=== PATIENT | female | born 1970 | race Caucasian/White ===

== ENCOUNTER → 2019-03-20 10:19 | Outpatient (BNVA) | payer MEDICAID, SELFPAY | PROVIDERS: Visit Provider Internal Medicine Rheumatology | DX: M05.79 Rheumatoid arthritis with rheumatoid factor of multiple sites without organ or systems involvement (principal); Z79.899 Other long term (current) drug therapy; M79.7 Fibromyalgia; Z79.52 Long term (current) use of systemic steroids | CPT/HCPCS: 36415; 82565; 84460; 85651; 86140; 99213 ==

== ENCOUNTER → 2019-03-20 10:57 | Outpatient (BNVA) | payer MEDICAID, SELFPAY | PROVIDERS: Visit Provider Internal Medicine Rheumatology | DX: M05.79 Rheumatoid arthritis with rheumatoid factor of multiple sites without organ or systems involvement (principal); Z79.899 Other long term (current) drug therapy; M79.7 Fibromyalgia | CPT/HCPCS: 85025 ==

== ENCOUNTER → 2019-05-09 14:42 | Outpatient (BNVA) | payer MEDICAID, SELFPAY | PROVIDERS: PCP Nurse Practitioner Family; Referring Provider Internal Medicine Rheumatology; Visit Provider Internal Medicine Rheumatology | DX: M05.79 Rheumatoid arthritis with rheumatoid factor of multiple sites without organ or systems involvement (principal); Z79.899 Other long term (current) drug therapy; M79.7 Fibromyalgia; Z11.1 Encounter for screening for respiratory tuberculosis | CPT/HCPCS: 36415; 80076; 82565; 85651; 86140; 99214 ==

== ENCOUNTER → 2019-05-09 15:59 | Outpatient (BNVA) | payer MEDICAID, SELFPAY | PROVIDERS: PCP Nurse Practitioner Family; Referring Provider Internal Medicine Rheumatology; Visit Provider Internal Medicine Rheumatology | DX: Z79.899 Other long term (current) drug therapy (principal); M05.79 Rheumatoid arthritis with rheumatoid factor of multiple sites without organ or systems involvement; M79.7 Fibromyalgia; Z71.89 Other specified counseling | CPT/HCPCS: 85025; 86480 ==

== ENCOUNTER 2019-05-10 14:40 | Outpatient (CLI) | payer MEDICAID, SELFPAY ==
--- NOTE | 2019-05-10 | XR_ITS ---
WS: [id number] Right foot, 3 views, 05/10/2019 Clinical Data: UNSPECIFIED RHEUMATOID ARTHRITIS Comparison: None. Findings: No fractures or dislocations are seen. There is cystic change of the heads of the second through four th metatarsals. There is cystic change at the base of the right fourth metatarsal. Cystic change and then the distal navicular is noted. There is a small bunion at the head of the right first metatarsal . Hammertoes deformities are noted in the second through fifth toes. There is a plantar spur. No wesley articular demineralization or calcifications are seen. XR/XR foot RT min 3V* [id number] Impression: 1. Diffuse cystic change of the second through fourth metatarsals, base of the right fifth metatarsal and of the distal navicular. 2. Hammertoes deformities of the second through fifth toes. 3. Bunion at the head of the right first metatarsal.
--- NOTE | 2019-05-10 | XR_ITS ---
WS: [id number] Left foot, 3 views, 05/10/2019 Clinical Data: UNSPECIFIED RHEUMATOID ARTHRITIS Comparison: None. Findings: There are cystic changes at the heads of the second through fifth metatarsals. The base of the left s econd proximal phalanx shows a small cyst. There are hammertoe deformities of the second through four th toes. There is medial deviation of the left fifth toe with cyst formation at the base of the left fifth proximal phalanx. There is a small bunion at the head of the left first metatarsal. Tarsal bone s and proximal metatarsals show no abnormalities. There are no fractures. No periarticular demineralization or calcifications are seen. There is an Ac hilles spur. XR/XR foot LT min 3V* [id number] Impression: 1. Hammertoe deformities of the second through fourth toes. 2. Medial deviation of the left fifth toe. 3. Cystic changes at the heads of the second through fifth metatarsals with cys tic change at the base of the left second proximal phalanx and left fifth proxi mal phalanx.
--- NOTE | 2019-05-10 | XR_ITS ---
WS: [id number] Chest 2 views, 05/10/2019 Clinical Data: UNSPECIFIED RHEUMATOID ARTHRITIS Comparison: PA and lateral chest, 12/15/2017. Findings: No nodules, masses or effusions are seen. The heart is normal. The pulmonary vascularity is not increased. No pneumonia or pneumothorax is seen. There are surgery clips at the right side of th e neck adjacent to the lower cervical and the T1 vertebral bodies. XR/XR chest 2V* [id number] Impression: Negative chest.
--- NOTE | 2019-05-10 | XR_ITS ---
WS: [id number] Right hand, 3 views, 05/10/2019 Clinical Data: UNSPECIFIED RHEUMATOID ARTHRITIS Comparison: None. Findings: No fractures or dislocations are seen. The soft tissues are unremarkable. The joint space s are normal No periarticular demineralization or calcifications are seen. There is cystic change at the head of t he first metacarpal, base of the right fourth metacarpal and also at the base of the first metacarpal . There is cystic change throughout the proximal row of carpal bones. XR/XR hand RT min 3V* [id number] Impression: Cystic change throughout the proximal carpal bones, base of the right first me tacarpal, right fourth metacarpal and head of the right first metacarpal.
--- NOTE | 2019-05-10 | XR_ITS ---
WS: [id number] Left hand, 3 views, 05/10/2019 Clinical Data: UNSPECIFIED RHEUMATOID ARTHRITIS Comparison: None. Findings: No fractures or dislocations are seen. The soft tissues are unremarkable. The MP joints and IP joints are unremarkable There is cystic change and erosion of the distal left radius and left ulna. There is cystic change th roughout the proximal row of carpal bones. There is cystic change at the base of the left first metac arpal and also at its distal aspect. XR/XR hand LT min 3V* [id number] Impression: Cystic change of the proximal role carpal bones, distal radius and ulna, and pr oximal and distal portion of the left first metacarpal.
== END 2019-05-10 14:41 | disposition home or self-care (01) ==
LOC: RADWPI 14:43
PROVIDERS: PCP Nurse Practitioner Family; Visit Provider Internal Medicine Rheumatology
DX: M06.9 Rheumatoid arthritis, unspecified (principal); M85.642 Other cyst of bone, left hand; M85.641 Other cyst of bone, right hand; M20.42 Other hammer toe(s) (acquired), left foot
CPT/HCPCS: 71046; 73130; 73630

== ENCOUNTER → 2019-06-11 11:03 | Outpatient (BNVA) | payer MEDICAID, SELFPAY | PROVIDERS: PCP Nurse Practitioner Family; Visit Provider Internal Medicine Rheumatology | DX: Z79.899 Other long term (current) drug therapy (principal); M05.79 Rheumatoid arthritis with rheumatoid factor of multiple sites without organ or systems involvement | CPT/HCPCS: 36415; 80076; 82565; 85025; 85651; 86140 ==

== ENCOUNTER 2019-07-03 09:13 | Outpatient (CLI) | payer MEDICAID, SELFPAY ==
--- NOTE | 2019-07-03 | MR_ITS ---
WS: [id number] INDICATION: Knot left hand TECHNIQUE: MRI left hand without gadolinium enhancement. Axial T1, axial T2, coronal 3-D FSPGR, sagit polo T2, coronal T1, coronal STIR. FINDINGS: Marker in the area of concern along the dorsal hand at the level of the mid metacarpals. In the area of palpable abnormality there is a dorsal well-circumscribed T2 hyperintense cystic lesion extending across the second third and fourth dorsal metacarpals. Cystic lesion measures 2.8 x 3.6 x 0.9 cm AP b y transverse by craniocaudal. Cystic lesion abuts the dorsal extensor compartment tendons. This exten ds along the extensor retinaculum. This does not extend into the intercarpal spaces or interosseous m uscles. Specifically the cystic lesion involves the extensor digitorum and indices tendons. MRI of the left hand without gadolinium enhancement. Moderate to advanced degenerative arthritis radi ocarpal joint with loss of the joint space. Subchondral cystic change involving the radial scaphoid a nd lunate articulations. Subchondral cystic change involving the distal radius. Advanced osteoarthrit is involving the distal radial ulnar joint, carpal bones, and CMC joints. Cystic changes involving th e proximal and distal carpal rows. IMPRESSION: 1. In the area of concern, there is a T2 hyperintense well-circumscribed cystic-appearing lesion alissa ng the dorsal mid metacarpals measuring 2.8 x 3.6 x 0.9 cm likely representing ganglion cyst. Gadolin ium was not administered therefore enhancement cannot be evaluated. 2. Specifically this abuts and involves the extensor digitorum and indices tendon sheath. No extensi on into the intercarpal or intraosseous spaces. 3. Advanced degenerative arthritis involving the distal radial ulnar joint and radiocarpal joint wit h subchondral cystic change. 4. Chronic appearing degenerative cystic changes involving the proximal and distal carpal rows. 5. Degenerative appearing edema involving the proximal and distal carpal rows including the scaphoid and lunate. 6. Fluid in the distal radioulnar joint. 7. Degenerative arthritis CMC joints, worse at the first CMC and second CMC with subchondral cystic change and degenerative edema.
== END 2019-07-03 09:14 | disposition home or self-care (01) ==
LOC: RADWPI 09:14
PROVIDERS: PCP Nurse Practitioner Family; Visit Provider Internal Medicine Rheumatology
DX: M79.89 Other specified soft tissue disorders (principal); M19.042 Primary osteoarthritis, left hand
CPT/HCPCS: 73218

== ENCOUNTER → 2019-09-25 11:43 | Outpatient (BNVA) | payer MEDICAID, SELFPAY | PROVIDERS: PCP Nurse Practitioner Family; Visit Provider Internal Medicine Rheumatology | DX: M05.79 Rheumatoid arthritis with rheumatoid factor of multiple sites without organ or systems involvement (principal); Z79.899 Other long term (current) drug therapy; M79.89 Other specified soft tissue disorders; M79.7 Fibromyalgia | CPT/HCPCS: 36415; 80076; 82565; 85025; 85651; 86140; 99214 ==

== ENCOUNTER → 2020-01-08 11:30 | Outpatient (BNVA) | payer MEDICAID, SELFPAY | PROVIDERS: PCP Nurse Practitioner Family; Visit Provider Internal Medicine Rheumatology | DX: Z79.899 Other long term (current) drug therapy (principal) | CPT/HCPCS: 36415; 80076; 82565; 85025; 85651; 86140 ==

== ENCOUNTER → 2020-03-16 14:29 | Outpatient (BNVA) | payer MEDICAID, SELFPAY | PROVIDERS: PCP Nurse Practitioner Family; Visit Provider Internal Medicine Rheumatology | DX: M05.79 Rheumatoid arthritis with rheumatoid factor of multiple sites without organ or systems involvement (principal); Z79.899 Other long term (current) drug therapy; M79.7 Fibromyalgia | CPT/HCPCS: 99214 ==

== ENCOUNTER 2020-08-14 13:07 | Outpatient (CLI) | payer MEDICAID, SELFPAY ==
[2020-08-14 13:28] LABS: Basophils # 0.1 10^3/uL (0.0-0.1); Basophils % 1.4 %; Eosinophils # 0.4 10^3/uL (0.0-0.8); Eosinophils % 7.8 %; Hematocrit 40.7 % (37.0-47.0); Lymphocytes # 1.6 10^3/uL (0.8-4.8); Lymphocytes % 32.2 %; Mean Corpuscular HGB Conc 31.9 g/dL (30.0-36.0); Mean Corpuscular Hemoglobin 30.5 pg (28.0-34.0); Mean Corpuscular Volume 95.5 fL (81-99); Mean Platelet Volume 11.3 fL (7.4-10.4); Monocytes # 0.7 10^3/uL (0.2-0.9); Monocytes % 13.3 %; Neutrophils # 2.19 10^3/uL (1.8-7.7); Neutrophils % 44.9 %; Nucleated Red Blood Cells % 0 %; Platelet Count 234 10^3/cmm (130-400); Red Blood Count 4.26 10^6/uL (4.1-5.3); Red Cell Distribution Width 13.4 % (12.1-15.1); White Blood Count 4.9 10^3/uL (4.0-10.0)
[2020-08-14 13:47] LABS: Alanine Aminotransferase 7 U/L (0-33); Albumin Level 4.3 g/dL (3.5-5.2); Alkaline Phosphatase 72 IU/L (35-105); Aspartate Amino Transferase 18 U/L (0-32); Total Bilirubin 0.7 mg/dL (0.15-1.2); Total Protein 7.3 g/dL (6.6-8.7)
[2020-08-14 14:02] LABS: 25 Hydroxy Vitamin D 30 ng/mL (30-100)
[2020-08-14 14:06] LABS: C Reactive Protein 0.3 mg/L (0.0-4.9); Glomerular Filtration Rate 58.2 mL/min (90-130)
== END 2020-08-14 13:08 | disposition home or self-care (01) ==
PROVIDERS: PCP Nurse Practitioner Family; Visit Provider Internal Medicine Rheumatology
DX: M05.79 Rheumatoid arthritis with rheumatoid factor of multiple sites without organ or systems involvement (principal); Z79.899 Other long term (current) drug therapy; M19.90 Unspecified osteoarthritis, unspecified site
CPT/HCPCS: 36415; 80076; 82306; 82565; 85025; 86140

== ENCOUNTER → 2020-10-01 14:07 | Outpatient (BNVA) | payer MEDICAID, SELFPAY | PROVIDERS: PCP Nurse Practitioner Family; Visit Provider Internal Medicine Rheumatology | DX: M05.79 Rheumatoid arthritis with rheumatoid factor of multiple sites without organ or systems involvement (principal); M79.7 Fibromyalgia; Z71.89 Other specified counseling; Z79.899 Other long term (current) drug therapy | CPT/HCPCS: 99214 ==

== ENCOUNTER → 2021-02-04 14:44 | Outpatient (BNVA) | payer MEDICAID, SELFPAY | PROVIDERS: PCP Nurse Practitioner Family; Visit Provider Internal Medicine Rheumatology | DX: M05.79 Rheumatoid arthritis with rheumatoid factor of multiple sites without organ or systems involvement (principal); Z79.899 Other long term (current) drug therapy; M79.7 Fibromyalgia; Z71.89 Other specified counseling | CPT/HCPCS: 99214 ==

== ENCOUNTER 2021-12-13 13:18 | Outpatient (CLI) | payer MEDICAID, SELFPAY ==
[2021-12-13 14:02] LABS: Basophils # 0.1 10^3/uL (0.0-0.1); Basophils % 1.3 %; Eosinophils # 0.4 10^3/uL (0.0-0.8); Hematocrit 41.2 % (37.0-47.0); Hemoglobin 13.5 g/dL (11.5-15.3); Lymphocytes # 2.2 10^3/uL (0.8-4.8); Lymphocytes % 40.3 %; Mean Corpuscular HGB Conc 32.8 g/dL (30.0-36.0); Mean Corpuscular Hemoglobin 31.5 pg (28.0-34.0); Mean Corpuscular Volume 96.3 fl (81-99); Mean Platelet Volume 10.1 fL (7.4-10.4); Monocytes # 0.4 10^3/uL (0.2-0.9); Monocytes % 8.2 %; Neutrophils # 2.22 10^3/uL (1.8-7.7); Neutrophils % 41.5 %; Nucleated Red Blood Cells % 0 %; Platelet Count 276 10^3/cmm (130-400); Red Blood Count 4.28 10^6/uL (4.1-5.3); Red Cell Distribution Width 15.5 % (12.1-15.1); White Blood Count 5.4 10^3/uL (4.0-10.0)
[2021-12-13 14:29] LABS: Alanine Aminotransferase 155 U/L (0-33); Albumin Level 4.4 g/dL (3.5-5.2); Alkaline Phosphatase 97 U/L (35-105); Aspartate Amino Transferase 140 U/L (0-32); Globulin 3.5 g/dL (1.3-4.6); Glomerular Filtration Rate 42.8 mL/min (90-130); Total Bilirubin 0.6 mg/dL (0.15-1.2); Total Protein 7.9 g/dL (6.6-8.7)
== END 2021-12-13 13:19 | disposition home or self-care (01) ==
LOC: LAB 13:18
PROVIDERS: PCP Nurse Practitioner Family; Visit Provider Internal Medicine Rheumatology
DX: M05.79 Rheumatoid arthritis with rheumatoid factor of multiple sites without organ or systems involvement (principal); Z79.899 Other long term (current) drug therapy; M19.90 Unspecified osteoarthritis, unspecified site; M79.7 Fibromyalgia; Z71.89 Other specified counseling; R74.8 Abnormal levels of other serum enzymes; M19.049 Primary osteoarthritis, unspecified hand
CPT/HCPCS: 36415; 80076; 82565; 85025; 86140; 99213; 99214

== ENCOUNTER → 2022-04-07 15:38 | Outpatient (BNVA) | payer MEDICAID, SELFPAY | PROVIDERS: PCP Nurse Practitioner Family; Visit Provider Internal Medicine Rheumatology | DX: M05.79 Rheumatoid arthritis with rheumatoid factor of multiple sites without organ or systems involvement (principal); Z79.899 Other long term (current) drug therapy; M79.7 Fibromyalgia; Z71.89 Other specified counseling | CPT/HCPCS: 80076; 82306; 82565; 84439; 84443; 85025; 85651; 86140 ==

== ENCOUNTER → 2022-07-07 13:31 | Outpatient (BNVA) | payer MEDICAID, SELFPAY | PROVIDERS: PCP Nurse Practitioner Family; Visit Provider Internal Medicine Rheumatology | DX: Z79.899 Other long term (current) drug therapy (principal); M05.79 Rheumatoid arthritis with rheumatoid factor of multiple sites without organ or systems involvement | CPT/HCPCS: 80076; 82565; 85025; 85651; 86140 ==

== ENCOUNTER → 2023-02-24 09:43 | Outpatient (BNVA) | payer MEDICAID, SELFPAY | PROVIDERS: PCP Nurse Practitioner Family; Referring Provider Nurse Practitioner Family; Visit Provider Internal Medicine | DX: C73 Malignant neoplasm of thyroid gland (principal); R49.0 Dysphonia; E66.9 Obesity, unspecified; Z79.890 Hormone replacement therapy; Z68.38 Body mass index [BMI] 38.0-38.9, adult | CPT/HCPCS: 84432; 84439; 84443; 86376; 86800; 99204 ==

== ENCOUNTER 2023-04-27 11:57 | Outpatient (CLI) | payer MEDICAID, SELFPAY ==
--- NOTE | 2023-04-27 12:45 | US_ITS ---
WS: [id number] THYROID ULTRASOUND HISTORY: thyroid cancer COMPARISON: None available. Right lobe: RIGHT lobe has been surgically removed. No residual thyroid in the thyroid bed. No adenop athy. Left lobe: 1.3 cm x 1.1 cm x 3.5 cm (w x ap x l). Volume: 2.4 cm3. LEFT thyroid lobe the send normal. Variable echogenicity throughout the entire thyroid. There are ech ogenic foci and coarse or calcification centrally. There is a hypoechoic lobulated nodule in the cent ral gland measuring 1.0 x 0.7 x 1.6 cm. The adjacent gland is also abnormal. Isthmus: 0.2 cm. IMPRESSION: 1. TI-RADS 5: Abnormal LEFT thyroid. The entire thyroid is heterogeneous. There is a more focal disc rete nodule in the central gland containing echogenic foci and a macrocalcification. This nodule gloria ures 1.0 x 0.7 x 1.6 cm. No prior studies for comparison. If prior ultrasounds have been obtained thi s nodule may have been present and stable over multiple years. Otherwise consider ultrasound-guided F NA. 2. Prior RIGHT thyroidectomy. No mass in the thyroid bed.
== END 2023-04-27 11:58 | disposition home or self-care (01) ==
LOC: RAD 11:58
PROVIDERS: PCP Nurse Practitioner Family; Visit Provider Internal Medicine
DX: C73 Malignant neoplasm of thyroid gland (principal); R49.0 Dysphonia
CPT/HCPCS: 76536

== ENCOUNTER 2023-05-05 12:16 | Outpatient (CLI) | payer MEDICAID, SELFPAY ==
[2023-05-05 14:40] LABS: Free T4 Free Thyroxine 1.02 ng/dL (0.82-1.77)
[2023-05-08 08:20] LABS: Thyroglobulin AB 2 IU/mL (< or = 1)
[2023-05-11 18:19] LABS: Thyroglobulin Level <0.4 ng/mL
== END 2023-05-05 12:17 | disposition home or self-care (01) ==
LOC: LAB 12:18
PROVIDERS: PCP Nurse Practitioner Family; Visit Provider Internal Medicine
DX: C73 Malignant neoplasm of thyroid gland (principal); R49.0 Dysphonia
CPT/HCPCS: 84432; 84439; 84443; 86800

== ENCOUNTER 2023-05-05 12:22 | Outpatient (CLI) | payer MEDICAID, SELFPAY ==
--- NOTE | 2023-05-05 12:45 | US_ITS ---
WS: [id number] ULTRASOUND THYROID FNA CLINICAL INFORMATION: C73 - Malignant neoplasm of thyroid gland TECHNIQUE: Ultrasound-guided FNA FINDINGS: The procedure including risks, benefits, and complications were discussed with the patient who agreed to proceed. Timeout was performed. Using sterile technique patient was prepped and draped in usual sterile fashion. After 1% lidocaine, using ultrasound guidance, a 25-gauge needle was advanc ed into the LEFT thyroid nodule. 5 passes were made with active aspiration. Pathology was present for slide preparation. No immediate complications. Patient remained in the ultrasound suite 10 minutes postprocedure with intermittent ultrasound. Small amount of edema and hematoma in the subcutaneous soft tissues. No hematoma in the thyroid bed. Patie nt tolerated the procedure well and LEFT the radiology suite in good condition. IMPRESSION: Ultrasound-guided FNA of the LEFT thyroid nodule. Cytology is pending.
== END 2023-05-05 12:23 | disposition home or self-care (01) ==
LOC: RAD 12:22
PROVIDERS: PCP Nurse Practitioner Family; Visit Provider Internal Medicine
DX: C73 Malignant neoplasm of thyroid gland (principal); E04.1 Nontoxic single thyroid nodule
CPT/HCPCS: 10005; 88173

== ENCOUNTER → 2023-11-10 08:40 | Outpatient (BNVA) | payer MEDICAID, SELFPAY | PROVIDERS: PCP Nurse Practitioner Family; Visit Provider Internal Medicine | DX: E04.1 Nontoxic single thyroid nodule (principal); C73 Malignant neoplasm of thyroid gland; R49.0 Dysphonia; Z79.890 Hormone replacement therapy | CPT/HCPCS: 36415; 84439; 84443; 99214 ==

== ENCOUNTER → 2025-01-15 10:45 | Outpatient (BNVA) | payer MEDICAID, SELFPAY | PROVIDERS: PCP Nurse Practitioner Family; Visit Provider Internal Medicine Rheumatology | DX: M05.79 Rheumatoid arthritis with rheumatoid factor of multiple sites without organ or systems involvement (principal); M79.7 Fibromyalgia; Z79.899 Other long term (current) drug therapy; Z71.85 Encounter for immunization safety counseling | CPT/HCPCS: 36415; 80076; 82565; 85025; 85651; 86140; 86480; 86704; 86803; 87340; 99214 ==

== ENCOUNTER 2025-01-28 09:29 | Observation (INO) | payer MEDICAID, SELFPAY ==
--- NOTE | 2025-01-27 15:21 | P.ANESASSM_ITS ---
Pre-Anesthetic Assessment Height/Weight: Height 5 ft 11 in Preop Diagnosis: Concern for thyroid cancer Operation Date: 01/28/25 07:00 Proposed Procedures p Hemithyroidectomy(Left) - Aaron Ribeiro MD Was Beta Sunday taken within 24 hours: N/A Was Clonidine taken within 24 hours: N/A Social No alcohol and No tobacco Exam alert, oriented x 3, clear to auscultation bilaterally and regular rate & rhythm Airway Submandibular: within normal limits Cervical ROM: within normal limits Mallampati: Class III Dentition: false Anesthetic Plan ASA status: 3 Anesthesia: General Other: Patient states that she had multiple grandparents and a brother that have had a bad reaction to succinylcholine with anesthesia. She is unaware of what that reaction was but states one of them almost . N.p.o. since yesterday evening History of GERD on omeprazole Concern for thyroid cancer Rheumatoid arthritis takes prednisone as needed. Has not taken this in at least a few weeks Labs reviewed 01/15/25 and acceptable for procedure And for general anesthesia with TIVA Medications/Allergies Home Medications ?Medication ?Instructions ?Recorded ?Confirmed ?Last Taken ?Type levothyroxine 150 mcg tablet 150 mcg PO DAILY #40 tabs 12/27/24 01/27/25 01/27/25 Rx lidocaine 5 % topical patch 1 patch topical DAILY #30 ea 01/06/25 01/27/25 Unknown Rx diclofenac sodium 1 % topical gel 2 g topical QID #100 grams 01/15/25 01/27/25 Unknown Rx omeprazole 40 mg capsule,delayed See Rx Instructions . Route 01/15/25 01/27/25 Unknown Rx release .COMPLEX #90 caps prednisone 10 mg tablet See Rx Instructions PO .COMP TORI 01/15/25 01/27/25 Unknown Rx PRN joint pain #30 tabs tocilizumab-aazg 162 mg/0.9 mL 162 mg (0.9 mL) SUBCUT Q7D #3.6 mL 01/15/25 01/27/25 01/13/25 Rx subcutaneous pen injector (Tyenne Autoinjector) Allergies Allergy/AdvReac Type Severity Reaction Status Date / Time succinylcholine Allergy Unknown Verified 01/27/25 14:56 leflunomide AdvReac Intermediate transaminit Verified 01/15/25 11:32 is ON LICENSE OF [facility] Anesthesia Medical History Swelling of left hand Resolved Immunization counseling High risk medication use History of thyroid cancer Surgical History History of tubal ligation History of partial thyroidectomy Family History Denies family history of Rheumatoid arthritis Social History Smoking and tobacco/nicotine status: never used tobacco/nicotine Alcohol intake: never Substance/Drug Use: never Lives independently: Yes Marital status: Legally
[2025-01-28] VITALS (55 sets, daily range): BP systolic 128–164; BP diastolic 71–100; PULSE 59–82; RESP 8–24; TEMP 36.2–36.7; O2SAT 96–100; BMI 31.8; BMI 34.1
--- NOTE | 2025-01-28 06:46 | W.PM.OPSUD ---
Surgery/Procedure H&P Update DATE OF PROCEDURE: January 28, 2025 DATE H&P PERFORMED: 01/28/25 PREOP DIAGNOSIS: Concern for thyroid cancer PRIMARY INDICATION FOR PROCEDURE: Left thyroid nodule with non diagnostic FNA biopsies PLANNED PROCEDURE: Operation Date: 01/28/25 07:00 Proposed Procedures p Hemithyroidectomy(Left) - Aaron Ribeiro MD
[2025-01-28] MEDS: ceFAZolin 2,000 mg SDV 2000 MG IVP ×3 (07:30→23:08)
[2025-01-28] MEDS: triamcinolone 40 mg/mL SDV INJECTION (08:53)
[2025-01-28] MEDS: lidocaine-epi 1% 20 mL INJ INJECTION (08:54)
[2025-01-28] MEDS: ceFAZolin 1,000 mg SDV 1000 MG IRRIGATION (08:55)
[2025-01-28] MEDS: thrombin 5,000 unit SDV 5000 UNIT XX (08:55)
[2025-01-28] MEDS: neomycin-poly-bacitracin oint 28 gm 1 APPLIC TOPICAL (08:56)
--- NOTE | 2025-01-28 09:21 | P.OP_ITS ---
Operative Report Date of procedure: January 28, 2025 Pre-op diagnosis: Left thyroid nodule with repeatedly nondiagnostic FNA biopsies Post-op diagnosis: same Post-op findings: - Post surgical changes of the thyroid bed on the right - Multinodular left thyroid lobe - Left upper and left lower parathyroids identified and preserved in place - Left recurrent laryngeal nerve and left superior laryngeal nerves identified and preserved intact - O/W normal anterior neck exam Procedure done: Left ashley/completion thyroidectomy Implants: None Specimens removed/disposition: Left thyroid lobe Pathology: Left thyroid lobe Surgeon: Aaron Ribeiro Surgeon: Aaron Ribeiro MD Soup Mixer: Andrew Pimentel Anesthesia: General Estimated blood loss (mL): 25 IV fluids (mL): 1,000 Complications: None Findings: - Post surgical changes of the thyroid bed - more prominent on the right - Left upper and left lower parathyroids identified and preserved in place - Left recurrent laryngeal nerve and left superior laryngeal nerve identified and preserved in place - O/W normal left thyroid exam Brief History: 54 yo wf with a h/o a prior right hemithyroidectomy now with a left thyroid lobe nodule with repeatedly non disagnostic left thyroid lobe nodule. The patient desires left ashley/completion thyroidectomy. Procedure: The patient was identified in the preoperative holding area and was taken to the operating room where she was placed on the operating table in the supine position. Anesthesia was obtained with general endotracheal anesthesia with the previously placed Nirvana nerve monitoring electrode placed on the endotracheal tube. The GlideScope was used to confirm proper placement of the endotracheal tube electrode in the glottis. The incision was then drawn out of the patient's anterior neck in the prior incision and this incision was injected with local anesthesia. The patient was then prepped and draped in the usual sterile fashion. The incision was made with a 15 blade through the skin and dissection proceeded down through the subcutaneous tissues to the avascular midline. The strap muscles were then elevated off the left thyroid lobe. The [place] retractor was placed in the wound and a circumferential dissection was then began around the left thyroid lobe beginning at the inferior pole. The vagus nerve was stimulated with the nerve monitoring hemostat in the carotid sheath confirming the integrity of the nerve monitoring circuit. A capsular dissection was accomplished on the thyroid with the nerve monitoring hemostat. The the dissection then proceeded into the tracheoesophageal groove where the recurrent laryngeal nerve presence was confirmed with the nerve monitoring hemostat. The left thyroid lobe was then rotated medially as the dissection proceeded while protecting the recurrent laryngeal nerve in the tracheoesophageal groove. The inferior parathyroid and the superior parathyroid both both identified preserved intact. The superior pole vessels were then dissected individually and clipped with ligaclips and divided. The dissection then proceeded to Brown's ligament which was dissected off of the trachea while protecting the recurrent laryngeal nerve. At this point the left thyroid lobe was removed with the patient using bipolar cautery. Once the left lobe was removed, the wound was irrigated with a copious amount of warm normal saline. The wound was then inspected for hemostasis which was found to be adequate. At this point the vagus nerve was again stimulated in the carotid sheath confirming the integrity of the left recurrent laryngeal nerve function. At this point the left tracheoesophageal groove was filled with Gelfoam soaked in thrombin. A drain was placed in the wound and the wound was then closed with interrupted 4-0 Monocryl sutures in subcutaneous tissues and a running subcuticular 5-0 Monocryl. At this point the final closure was accomplished with Dermabond and Steri-Strips. At this point the procedure was terminated and control of the patient was returned to [facility] where she underwent an uneventful reversal of anesthesia and extubation and was taken to the recovery room in stable condition. There were no operative or anesthetic complications.
--- NOTE | 2025-01-28 09:30 | ANE.PACU2 ---
Inpatient post-anesthesia follow up: Airway intact: Yes Vital signs: Temperature 98.1 F Pulse Rate 65 Respiratory Rate 16 Blood Pressure 128/71 Pulse Oximetry 98 Oxygen Delivery Me thod Room Air Oxygen Flow Rate Fraction of Inspir ed Oxygen Hydration adequate: Yes Nausea and vomiting: No Pain level: 1 Mental status: Baseline
[2025-01-28] MEDS: HYDROcodone-acetaminophen 5-325 mg Tablet 1 TAB PO ×2 (10:27→18:53)
[2025-01-28 10:48] LABS: Calcium 8.7 mg/dL (8.5-10.5)
--- NOTE | 2025-01-28 17:07 | P.PN_ITS ---
Subjective Subjective: 54 yo wf who is night of surgery s/p lef t ashley/completion thyroidectomy. The patient reports that she is doing well. She has been able to eat without difficulty, and is having no other symptoms. Vitals/I&O/Wt Last Vital Signs Temp 98.1 F 01/28/25 13:42 Pulse 65 01/28/25 14:00 Resp 16 01/28/25 13:35 BP 128/71 01/28/25 13:40 Pulse Ox 98 01/28/25 13:40 O2 Del Method Room Air 01/28/25 13:40 01/28/25 01/28/25 01/28/25 06:59 14:59 22:59 Intake Total 1000 / 1000 Output Total Balance 995 / 995 - 968 Weight last 48 hrs Weight 110.932 kg Weight 103.419 kg Physical Exam Const: COMMON NORMALS: no acute distress, average body habitus and patient oriented x3 GENERAL APPEARANCE: cooperative, well kempt and well developed HENMT: COMMON NORMALS: normocephalic, atraumatic and Normal external nose present HEAD & SCALP: normocephalic and atraumatic FACE & SINUS: normal facial exam NOSE: Normal external nose present Eye: COMMON NORMALS: conjunctivae normal and no scleral icterus CONJUNCTIVA: Yes conjunctivae normal Neck/C-Spine: COMMON NORMALS: no lymphadenopathy and supple GENERAL: Yes trachea midline THYROID: other (Thyroidectomy incision without swelling; drain in place.) Resp: COMMON NORMALS: normal respiratory effort, No retractions and No use of accessory muscles Neuro: COMMON NORMALS: patient oriented x3 and CN's II-XII intact bilaterally CRANIAL NERVES: Yes other (Voice unchanged from preop.) Psych: APPEARANCE: Yes well kempt Urinary Catheter Management: Hunter: Cath Placed During This Visit: yes Urinary Catheter Date of Insertion: 01/28/25 Urinary Catheter Time of Insertion: 07:35 Data Other Labs: PTH = 56 Serum Calcium level = 8.7 A&P Assessment and plan 1. Thyroid nodule: Impression: Night of surgery s/p left ashley/completion thyroidectomy doing well Plan: - ICU observation overnight - Regular diet - Continue Synthroid at current dose - Pain management - Closed suction drainage - Anticipate d/c in the morning PDMP PDMP Reviewed: Not Reviewed Attestations Medical Necessity Statement*: The patient requires overnight observation of her airway and serum calcium Coding Level of Care Code Acute Code for Chg Fwd Diagnoses Thyroid nodule E04.1
[2025-01-29 04:11] VITALS: BP 114/66; PULSE 63; RESP 18; TEMP 36.4; O2SAT 95
--- NOTE | 2025-01-29 05:12 | P.PN_ITS ---
Subjective Subjective: 54 yo wf who is POD #1 s/p left ashley/com pletion thyroidectomy who reports that she is doing well. She is able to eat and reports mild to moderate pain. She is o/w without c/o. Medications: Reviewed: Yes Vitals/I&O/Wt Last Vital Signs Temp 97.6 F 01/29/25 04:11 Pulse 63 01/29/25 04:11 Resp 18 01/29/25 04:11 BP 114/66 01/29/25 04:11 Pulse Ox 95 01/29/25 04:11 O2 Del Method Room Air 01/29/25 04:11 01/28/25 01/28/25 01/29/25 14:59 22:59 06:59 Intake Total 1000 / 1000 1141.667 / 2141.667 Output Total 20 / 52 Balance 995 / 995 1114.667 / 2109.667 -20 / 2089.667 Weight last 48 hrs Weight 110.932 kg Weight 103.419 kg Physical Exam Const: COMMON NORMALS: no acute distress, average body habitus and patient oriented x3 GENERAL APPEARANCE: cooperative, comfortable, well kempt and well developed HENMT: COMMON NORMALS: normocephalic and atraumatic HEAD & SCALP: normocephalic and atraumatic FACE & SINUS: normal facial exam Eye: COMMON NORMALS: conjunctivae normal and no scleral icterus CONJUNCTIVA: Yes conjunctivae normal Neck/C-Spine: COMMON NORMALS: no lymphadenopathy and supple GENERAL: Yes trachea midline and Yes other (Neck incision without swelling or erythema.) Resp: COMMON NORMALS: normal respiratory effort, No retractions and No use of accessory muscles Neuro: COMMON NORMALS: patient oriented x3 Psych: APPEARANCE: Yes well kempt Urinary Catheter Management: Hunter: Cath Placed During This Visit: yes Urinary Catheter Date of Insertion: 01/28/25 Urinary Catheter Time of Insertion: 07:35 A&P Assessment and plan 1. Thyroid nodule: Impression: POD #1 s/p left ashley/completion thyroidectomy doing well Plan: - Resume all preop medications - [place] (5/325) tabs: take 1-2 tabs po Q5 hours prn pain, #25, NR - Doxycycline (100mg) tabs: take 1 tab po BID X 10 days - Apply TIGIST to the drain site TID - F/U in Dr. Ribeiro's office on 01/31/25 - Notify Dr. Ribeiro for any problems PDMP PDMP Reviewed: Not Reviewed Attestations Medical Necessity Statement*: The patient required overnight observation of her airway Coding Level of Care Code Acute Code for Chg Fwd Diagnoses Thyroid nodule E04.1
[2025-01-29 06:11] VITALS: BP 114/66; PULSE 63; RESP 18; TEMP 36.4; O2SAT 98
--- OUTSIDE RECORDS SUMMARY | 2025-01-29 06:35 | XMS_ITS | Encounter Summary ---
Author Organization [facility] Address [address] [place] [address] Care Team Providers Care Event Specialist Name Role Phone Raulito Nava MD Primary Care Provider [phone] Encounter Details Date Type Department Care Team (Latest Contact Info) Description 06/21/2006 Outpatient Historical [facility] [address] [place] [id number] Cheri Alvarez, [facility] [address] [place] [phone] Diffus Cystic Mastopathy (Primary Dx); Mastodynia Social History Tobacco Use Types Packs/Day Years Used Date Smoking Tobacco: Never Assessed Comments Unknown Sex and Gender Information Value Date Recorded Sex Assigned at Not on file 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
--- OUTSIDE RECORDS SUMMARY | 2025-01-29 06:36 | XMS_ITS | Encounter Summary ---
Author Organization [facility] Address [address] [place] [address] Care Team Providers Care Laydown Machine Operator Name Role Phone Raulito Nava MD Primary Care Provider Encounter Details Date Type Department Care Team (Latest Contact Info) Description 07/06/2006 Outpatient Historical [facility] Rheumatology- [facility] [address] [place] [address] Hoang Alfonso MD NO ADDRESS ON FILE Rheumatoid Arthritis ([facility]) (Primary Dx); Encounter for Long-Term (Current) Use of Other Medications Social History Tobacco Use Types Packs/Day Years Used Date Smoking Tobacco: Never Assessed Comments Unknown Sex and Gender Information Value Date Recorded Sex Assigned at Not on file 

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
--- OUTSIDE RECORDS SUMMARY | 2025-01-29 06:36 | XMS_ITS | Encounter Summary ---
Author Organization [facility] Address [address] [place] [address] Care Team Providers Care Livestock Rancher Name Role Phone Raulito Nava MD Primary Care Provider [phone] Encounter Details Date Type Department Care Team (Latest Contact Info) Description 10/05/2006 Outpatient Historical [facility] Rheumatology- [facility] [address] [place] [address] Hoang Alfonso MD NO ADDRESS ON FILE Rheumatoid Arthritis ([facility]) (Primary Dx); Encounter for Long-Term (Current) Use of Other Medications; Rheumatism, Unspecified and Fibrositis Social History Tobacco Use Types Packs/Day Years Used Date Smoking Tobacco: Never Assessed Comments Unknown Sex and Gender Information Value Date Recorded Sex Assigned at Not on file Legal Sex Female 4:15 AM CRISIS MANAGER Gender Identity Not on file Sexual Orientation Not on file documented as of this encounter Plan of Treatment Not on file documented as of this encounter Visit Diagnoses Diagnosis Rheumatoid arthritis(714.0) (CMS/HCC)- Primary Rheumatoid arthritis Encounter for long-term (current) use of other medications Rheumatism, unspecified and fibrositis documented in this encounter Care Teams Livestock Rancher Relationship Specialty Start Date End Date Raulito Nava MD [address] [place] [address] PCP - General 12/04/07 documented as of this encounter
--- OUTSIDE RECORDS SUMMARY | 2025-01-29 06:36 | XMS_ITS | Encounter Summary ---
Author Organization [facility] Address [address] [place] [address] Care Team Providers Care Investigator Cash Shortage Name Role Phone Raulito Nava MD Primary Care Provider [phone] Encounter Details Date Type Department Care Team (Late st Contact Info) Description 04/23/2007 Outpatient Historical [facility] Medicine [address] [address] Social History Tobacco Use Types Packs/Day Years Used Date Smoking Tobacco: Never Assessed Comments No Sex and Gender Information Value Date Recorded Sex Assigned at Not on file Legal Sex Female 4:15 AM DIESEL ENGINEER Gender Identity Not on file Sexual Orientation Not on file documented as of this encounter Plan of Treatment Not on file documented as of this encounter Procedures Procedure Name Priority Date/Time Associated Diagnosis Comments CBC WITH DIFFERENTIAL Routine 04/27/2007 11:54 AM DIESEL ENGINEER ALT Routine 04/27/2007 11:54 AM DIESEL ENGINEER documented in this encounter Results * (ABNORMAL) CBC WITH DIFFERENTIAL (04/27/2007 11:54 AM DIESEL ENGINEER) WBC 5.0 4.5 - 11.0 K/UL [facility] RBC 4.42 4.2 - 5.4 M/UL [facility] HEMOGLOBIN 11.3(L) 12.0 - 16.0 G/DL [facility] HEMATOCRIT 36.0 36 - 46 % [facility] MCV 81.4(L) 82 - 100 FL [facility] MCH 25.6(L) 27 - 34 PG [facility] MCHC 31.4 31 - 37 G/DL [facility] RDW 18.1(H) 11 - 14.5 % [facility] PLATELETS 310 140 - 440 K/UL [facility] MPV 10.7 8.9 - 12.8 FL [facility] NEUTROPHILS 50.9 42.2 - 75.2 % [facility] LYMPHOCYTES 37.5 24 - 44 % [facility] MONOCYTES 10.2(H) 2 - 10 % [facility] EOSINOPHILS 0.8 0 - 7 % [facility] BASOPHILS 0.6 0 - 1 % [facility] NEUTROPHIL ABSOLUTE 2.6 1.4 - 6.5 K/uL [facility] LYMPHOCYTE ABSOLUTE 1.9 1.2 - 4.0 K/UL [facility] MONOCYTE ABSOLUTE 0.5 0.1 - 0.6 K/UL [facility] EOSINOPHIL ABSOLUTE 0.0 0 - 0.7 K/UL [facility] BASOPHILS ABSOLUTE 0.0 0 - 0.2 K/UL [facility] 04/27/2007 11:5 4 AM DIESEL ENGINEER 04/27/2007 11:55 AM DIESEL ENGINEER us Hoang Alfonso MD HEMATOLOGY ORDERABLES Final R esult [facility] CLIA# [id number] [address] [place] [address] * ALT (04/27/2007 11:54 AM DIESEL ENGINEER) ALT 29 4 - 36 IU/L [facility] 04/27/2007 11:5 4 AM DIESEL ENGINEER 04/27/2007 11:55 AM DIESEL ENGINEER us Hoang Alfonso MD CHEMISTRY ORDERABLES Final Re sult [facility] PETER# [id number] [address] [place] [address] documented in this encounter Visit Diagnoses Not on filedocumented in this encounter Care Teams Investigator Cash Shortage Relationship Specialty Start Date End Date Raulito Nava MD [address] [place] [address] PCP - General 12/04/07 documented as of this encounter
--- OUTSIDE RECORDS SUMMARY | 2025-01-29 06:36 | XMS_ITS | Clinical Summary ---
Author Organization [facility] Address [address] [place]: Epic Prelude ADT [place] [address] Care Team Providers Care Auto Overhauler Name Role Phone Raulito Nava MD Primary Care Provider Allergies Active Allergy Reactions Criticality Noted Date Comments Succinylcholine Other (See Comments) 04/27/2010 Strong family history , grandfather & brother some type of arrest, her mother tested positive for a reaction(denies any malignant hyperthermia) Medications EnbreL Mini 50 mg/mL (1 mL) Cartridge INJECT 50 MG SUBCUTANEOUSLY ONCE EVERY 7 DAYS 08/26/19 22 Active levothyroxine 200 mcg tablet Take 200 mcg by mouth daily in the morning. Active levothyroxine 50 mcg tablet Take 50 mcg by mouth daily in the morning. Active liothyronine (Cytomel) 25 mcg Tablet Take 25 mcg by mouth daily. Active linaCLOtide (Linzess) 290 mcg capsuleIndicatio ns:Constipation, unspecified constipation type TAKE 1 CAPSULE BY MOUTH DAILY BEFORE BREAKFAST FOR IDIOPATHIC CONSTIPATION 30 Capsule 10/18/19 22 Active PREDNISONE ORAL Take by mouth. 11/23/19 17 Active Active Problems Problem Noted Date Diagnosed Date Family history of malignant neoplasm of gastrointestinal tract 03/21/2013 Family history of colon canc er requiring screening colonoscopy 12/26/2012 Carpal tunnel syndrome 10/17/2011 Menorrhagia 01/21/2010 Vitamin B12 deficiency 08/11/2009 Obesity 05/22/2008 Hypothyroidism 05/22/2008 Depression 10/23/2007 Fibromyalgia 06/11/2007 Rheumatoid arthritis Resolved Problems Problem Noted Date Diagnosed Date Resolved Date Cubital tunnel syndrome 10/17/2011 07/2012 Adverse effect of drug medic inal [...] Date Smoking Tobacco: Never Smokeless Tobacco: Never Tobacco Cessation:Counseling Given: Not Answered Alcohol Use Standard Drinks/Week Comments Not Currently 0 (1 standard drink = 0.6 oz pur e alcohol) Comments Unknown Sex and Gender Information Value Date Recorded Sex Assigned at Not on file Legal Sex Female 2:56 PM MONORAIL HELPER Gender Identity Not on file Sexual Orientation Not on file Last Filed Vital Signs Vital Sign Reading Time Taken Comments Blood Pressure 118/76 10/15/2021 2:29 PM CDT Pulse 74 10/15/2021 2:29 PM CDT Temperature 36.1 C (97 F) 10/15/2021 2:29 PM CDT Respiratory Rate 16 10/15/2021 2:29 PM CDT Oxygen Saturation 97% 10/15/2021 2:29 PM CDT Room Air Inhaled Oxygen Concentration - - Weight 98.7 kg (217 lb 9.6 oz) 10/15/2021 2:29 P M CDT Height 180.3 cm (5' 11 ) 10/15/2021 2:29 PM CDT Body Mass Index 30.35 10/15/2021 2:29 PM CDT Plan of Treatment Health Maintenance Due Date Last Done Comments HEPATITIS B VACCINES (1 of 3 - 19+ 3-dose series) 1987 Preventative Visit-Managed Medicaid 1987 HPV/Cotest (21-29) 1989 CERVICAL CANCER SCREENING 1998 HPV/Cotest (30-65) 1998 PAP SMEAR 1998 BREAST CANCER SCREENING 2008 FIT-DNA Q 3 years 2013 FIT/FOBT Q 1 year 2013 Flex Sig/CT Colonography Q 5 years 2013 ZOSTER VACCINE (1 of 2) 2018 DTAP/TDAP/TD VACCINES (2 - Td or Tdap) 09/07/2021 COLORECTAL SCREENING 03/21/2023 03/21/2013, 03/21/19 14 Colorectal Cancer Screening 03/21/2023 INFLUENZA VACCINE (#1) 2024 11/26/2012, 2012 Insurance MEDICAID [place] Care Teams Auto Overhauler Relationship Specialty Start Date End Date Raulito Nava MD [address] [place] [address] PCP - General 12/04/07
--- OUTSIDE RECORDS SUMMARY | 2025-01-29 06:36 | XMS_ITS | Encounter Summary ---
Author Organization [facility] Address [address] [place] [address] Care Team Providers Care Advertising Dispatch Clerks Supervisor Name Role Phone Raulito Nava MD Primary Care Provider [phone] Encounter Details Date Type Department Care Team (Late st Contact Info) Description 01/22/2007 Outpatient Historical [facility] Rheumatology- [facility] [address] [place] [address] Hoang Alfonso MD NO ADDRESS ON FILE Social History Tobacco Use Types Packs/Day Years Used Date Smoking Tobacco: Never Assessed Comments No Sex and Gender Information Value Date Recorded Sex Assigned at Not on file Legal Sex Female 4:15 AM SKIAGRAPHER Gender Identity Not on file Sexual Orientation Not on file documented as of this encounter Plan of Treatment Not on file documented as of this encounter Visit Diagnoses Not on filedocumented in this encounter Care Teams Advertising Dispatch Clerks Supervisor Relationship Specialty Start Date End Date Raulito Nava MD [address] [place] [address] PCP - General 12/04/07 documented as of this encounter
--- OUTSIDE RECORDS SUMMARY | 2025-01-29 06:36 | XMS_ITS | Encounter Summary ---
Author Organization [facility] Address [address] [place] [address] Care Team Providers Care Sfdc Architect Name Role Phone Raulito Nava MD Primary Care Provider [phone] Encounter Details Date Type Department Care Team (Late st Contact Info) Description 02/28/2007 Outpatient Historical [facility] Rheumatology- [facility] [address] [place] [address] Hoang Alfonso MD NO ADDRESS ON FILE Social History Tobacco Use Types Packs/Day Years Used Date Smoking Tobacco: Never Assessed Comments No Sex and Gender Information Value Date Recorded Sex Assigned at Not on file Legal Sex Female 4:15 AM BULK FLUIDS HANDLER Gender Identity Not on file Sexual Orientation Not on file documented as of this encounter Plan of Treatment Not on file documented as of this encounter Visit Diagnoses Not on filedocumented in this encounter Care Teams Sfdc Architect Relationship Specialty Start Date End Date Raulito Nava MD [address] [place] [address] PCP - General 12/04/07 documented as of this encounter
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
--- OUTSIDE RECORDS SUMMARY | 2025-01-29 06:37 | XMS_ITS | Encounter Summary ---
Author Organization [facility] Address [address] [place] [address] Care Team Providers Care Commercial Leasing Manager Name Role Phone Raulito Nava MD Primary Care Provider [phone] Encounter Details Date Type Department Care Team (Latest Contact Info) Description 11/09/2006 Outpatient Historical [facility] [address] [place] [address] Cheri Alvarez, [facility] [address] [place] [address] Absence of Menstruation (Primary Dx); Unspecified Hypothyroidism; Rheumatoid Arthritis (CMS/HCC) Social History Tobacco Use Types Packs/Day Years Used Date Smoking Tobacco: Never Assessed Comments Unknown Sex and Gender Information Value Date Recorded Sex Assigned at Not on file Legal Sex Female 4:15 AM INSTALLER Gender Identity Not on file Sexual Orientation Not on file documented as of this encounter Plan of Treatment Not on file documented as of this encounter Visit Diagnoses Diagnosis Absence of menstruation- Primary Unspecified hypothyroidism Rheumatoid arthritis(714.0) (CMS/HCC) Rheumatoid arthritis documented in this encounter Care Teams Commercial Leasing Manager Relationship Specialty Start Date End Date Raulito Nava MD [address] [place] [address] PCP - General 12/04/07 documented as of this encounter
--- OUTSIDE RECORDS SUMMARY | 2025-01-29 06:37 | XMS_ITS | Encounter Summary ---
Author Organization [facility] Address [address] [place] [address] Care Team Providers Care Plug Drill Operator Name Role Phone Raulito Nava MD Primary Care Provider [phone] Encounter Details Date Type Department Care Team (Latest Contact Info) Description 08/17/2006 Outpatient Historical [facility] [address] [place] [address] Amisha Alfonso MD [address] [place] [phone] Rheumatoid Arthritis (CMS/HCC) (Primary Dx) Social History Tobacco Use Types Packs/Day Years Used Date Smoking Tobacco: Never Assessed Comments Unknown Sex and Gender Information Value Date Recorded Sex Assigned at Not on file Legal Sex Female 4:15 AM DIE REPAIR Gender Identity Not on file Sexual Orientation Not on file documented as of this encounter Plan of Treatment Not on file documented as of this encounter Visit Diagnoses Diagnosis Rheumatoid arthritis(714.0) (CMS/HCC)- Primary Rheumatoid arthritis documented in this encounter Care Teams Plug Drill Operator Relationship Specialty Start Date End Date Raulito Nava MD [address] [place] [address] PCP - General 12/04/07 documented as of this encounter
--- OUTSIDE RECORDS SUMMARY | 2025-01-29 06:37 | XMS_ITS | Encounter Summary ---
Author Organization [facility] Address [address] [place] [address] Care Team Providers Care Inspector Packer Glass Container Name Role Phone Raulito Nava MD Primary Care Provider [phone] Encounter Details Date Type Department Care Team (Latest Contact Info) Description 08/19/2003 Outpatient Historical [facility] [address] [phone] Amisha Alfonso MD [address] [place] [phone] DYSURIA (Primary Dx) Social History Tobacco Use Types Packs/Day Years Used Date Smoking Tobacco: Never Assessed Comments Unknown Sex and Gender Information Value Date Recorded Sex Assigned at Not on file Legal Sex Female 4:15 AM CABLE TENDER Gender Identity Not on file Sexual Orientation Not on file documented as of this encounter Plan of Treatment Not on file documented as of this encounter Visit Diagnoses Diagnosis Dysuria- Primary documented in this encounter Care Teams Inspector Packer Glass Container Relationship Specialty Start Date End Date Raulito Nava MD [address] [place] [phone] PCP - General 12/04/07 documented as of this encounter
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
--- OUTSIDE RECORDS SUMMARY | 2025-01-29 06:37 | XMS_ITS | Encounter Summary ---
Author Organization [facility] Address [address] [place] [address] Care Team Providers Care Nutrition Program Instructor Name Role Phone Raulito Nava MD Primary Care Provider [phone] Encounter Details Date Type Department Care Team (Late st Contact Info) Description 03/15/2002 Outpatient Historical [facility] Ear, Nose and Throat 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
--- OUTSIDE RECORDS SUMMARY | 2025-01-29 06:38 | XMS_ITS | Encounter Summary ---
Author Organization [facility] Address [address] [place] [address] Care Team Providers Care Red Cross Worker Name Role Phone Raulito Nava MD Primary Care Provider [phone] Encounter Details Date Type Department Care Team (Latest Contact Info) Description 06/06/2003 Outpatient Historical [facility] [address] [place] [phone] Amisha Alfonso MD [address] [place] [phone] LUMBAGO (Primary Dx) Social History Tobacco Use Types Packs/Day Years Used Date Smoking Tobacco: Never Assessed Comments Unknown Sex and Gender Information Value Date Recorded Sex Assigned at Not on file 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
--- OUTSIDE RECORDS SUMMARY | 2025-01-29 06:38 | XMS_ITS | Encounter Summary ---
Author Organization [facility] Address [address] [place] [address] Care Team Providers Care Filter Tender Jelly Name Role Phone Raulito Nava MD Primary Care Provider [phone] Encounter Details Date Type Department Care Team (Latest Contact Info) Description 02/12/[address] 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
--- OUTSIDE RECORDS SUMMARY | 2025-01-29 06:38 | XMS_ITS | Encounter Summary ---
Author Organization [facility] Address [address] [place] [address] Care Team Providers Care Senior Network Engineer Name Role Phone Raulito Nava MD Primary Care Provider Encounter Details Date Type Department Care Team (Latest Contact Info) Description 05/07/2002 Outpatient Historical [facility] [address] [place] [phone] Amisha Alfonso MD [address] [place] [phone] BACKACHE NOS (Primary Dx); HEADACHE; NEUROTIC DEPRESSION Social History Tobacco Use Types Packs/Day Years Used Date Smoking Tobacco: Never Assessed Comments Unknown Sex and Gender Information Value Date Recorded Sex Assigned at Not on file 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
--- OUTSIDE RECORDS SUMMARY | 2025-01-29 06:38 | XMS_ITS | Encounter Summary ---
Author Organization [facility] Address [address] [place] [address] Care Team Providers Care Punch Hand Name Role Phone Raulito Nava MD Primary Care Provider [phone] Encounter Details Date Type Department Care Team (Latest Contact Info) Description 03/07/[address] 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
--- OUTSIDE RECORDS SUMMARY | 2025-01-29 06:38 | XMS_ITS | Encounter Summary ---
Author Organization [facility] Address [address] [place] [address] Care Team Providers Care External Grinder Tender Name Role Phone Raulito Nava MD Primary Care Provider [phone] Encounter Details Date Type Department Care Team (Late st Contact Info) Description 04/16/2002 Outpatient Historical [facility] Ear, Nose and Throat 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
--- OUTSIDE RECORDS SUMMARY | 2025-01-29 06:38 | XMS_ITS | Encounter Summary ---
Author Organization [facility] Address [address] [place] [address] Care Team Providers Care Padded Box Sewer Name Role Phone Raulito Nava MD Primary Care Provider [phone] Encounter Details Date Type Department Care Team (Latest Contact Info) Description 09/04/2001 Outpatient Historical [facility] [address] [phone] Amisha Alfonso MD [address] [place] [phone] HYPOTHYROIDISM NOS (Primary Dx) Social History Tobacco Use Types Packs/Day Years Used Date Smoking Tobacco: Never Assessed Comments Unknown Sex and Gender Information Value Date Recorded Sex Assigned at Not on file 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
--- OUTSIDE RECORDS SUMMARY | 2025-01-29 06:38 | XMS_ITS | Encounter Summary ---
Author Organization [facility] Address [address] [place] [address] Care Team Providers Care Industrial Controls Technician Name Role Phone Raulito Nava MD Primary Care Provider [phone] Encounter Details Date Type Department Care Team (Latest Contact Info) Description 02/12/2003 Outpatient Historical [facility] [address] [place] [phone] Cheri Alvarez, [facility] [address] [place] [phone] NONINFECT VAG LEUKORRHEA (Primary Dx) Social History Tobacco Use Types Packs/Day Years Used Date Smoking Tobacco: Never Assessed Comments Unknown Sex and Gender Information Value Date Recorded Sex Assigned at Not on file 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
--- OUTSIDE RECORDS SUMMARY | 2025-01-29 06:38 | XMS_ITS | Encounter Summary ---
Author Organization [facility] Address [address] [place] [address] Care Team Providers Care Shearer Screen Measurer And Trimmer Name Role Phone Raulito Nava MD Primary Care Provider [phone] Encounter Details Date Type Department Care Team (Latest Contact Info) Description 08/11/2003 Outpatient Historical [facility] [address] [place] [phone] Amisha Alfonso MD [address] [place] [phone] ACUTE PHARYNGITIS (Primary Dx); ACUTE URI NOS; URIN TRACT INFECTION NOS; GASTRITIS/DUODEN NOS W/O HEMORRH Social History Tobacco Use Types Packs/Day Years Used Date Smoking Tobacco: Never Assessed Comments Unknown Sex and Gender Information Value Date Recorded Sex Assigned at Not on file 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 Gender Identity Not on file Sexual Orientation Not on file documented as of this encounter Plan of Treatment Not on file documented as of this encounter Visit Diagnoses Diagnosis Acute pharyngitis- Primary Acute upper respiratory infections of unspecified site Urinary tract infection, site not specified Unspecified gastritis and gastroduodenitis without mention of hemorrhage documented in this encounter Care Teams Shearer Screen Measurer And Trimmer Relationship Specialty Start Date End Date Raulito Nava MD [address] [place] [phone] PCP - General 12/04/07 documented as of this encounter
--- OUTSIDE RECORDS SUMMARY | 2025-01-29 06:38 | XMS_ITS | Encounter Summary ---
Author Organization [facility] Address [address] [facility] Attn: [place] [address] Care Team Providers Care Kit Planner Name Role Phone Raulito Nava MD Primary Care Provider [phone] Encounter Details Date Type Department Care Team (Late st Contact Info) Description 09/04/2001 Outpatient Historical Cheri Alvarez, BLUEPRINTING AND PHOTOCOPY SUPERVISOR [address] [place] [phone] Social History Tobacco Use Types Packs/Day Years Used Date Smoking Tobacco: Never Assessed Comments Unknown Sex and Gender Information Value Date Recorded Sex Assigned at Not on file 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
--- OUTSIDE RECORDS SUMMARY | 2025-01-29 06:39 | XMS_ITS | Encounter Summary ---
Author Organization [facility] Address [address] [place] [address] Care Team Providers Care Comber Operator Name Role Phone Raulito Nava MD Primary Care Provider [phone] Encounter Details Date Type Department Care Team (Latest Contact Info) Description 11/07/2001 Outpatient Historical [facility] [address] [place] [phone] Amisha Alfonso MD [address] [place] [phone] ABDOMINAL PAIN UNSPEC SITE (Primary Dx); HEMATURIA; CONTUSION NOS; OBSERVATION-ACCIDENT NEC Social History Tobacco Use Types Packs/Day Years Used Date Smoking Tobacco: Never Assessed Comments Unknown Sex and Gender Information Value Date Recorded Sex Assigned at Not on file 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
--- OUTSIDE RECORDS SUMMARY | 2025-01-29 06:39 | XMS_ITS | Encounter Summary ---
Author Organization [facility] Address [address] [place] [address] Care Team Providers Care Chair Car Attendant Name Role Phone Raulito Nava MD Primary Care Provider [phone] Encounter Details Date Type Department Care Team (Latest Contact Info) Description 11/21/2001 Outpatient Historical [facility] [address] [phone] Amisha Alfonso MD [address] [place] [phone] HEMATURIA (Primary Dx) Social History Tobacco Use Types Packs/Day Years Used Date Smoking Tobacco: Never Assessed Comments Unknown Sex and Gender Information Value Date Recorded Sex Assigned at Not on file 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
--- OUTSIDE RECORDS SUMMARY | 2025-01-29 06:39 | XMS_ITS | Encounter Summary ---
Author Organization [facility] Address [address] [place] [address] Care Team Providers Care Geospatial Technician Name Role Phone Raulito Nava MD Primary Care Provider [phone] Encounter Details Date Type Department Care Team (Late st Contact Info) Description 11/27/2001 Outpatient Historical [facility] Ear, Nose and Throat 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
--- OUTSIDE RECORDS SUMMARY | 2025-01-29 06:40 | XMS_ITS | Encounter Summary ---
Author Organization [facility] Address [address] [place] [address] Care Team Providers Care Roller Maker Name Role Phone Raulito Nava MD Primary Care Provider Encounter Details Date Type Department Care Team (Late st Contact Info) Description 01/09/2002 Outpatient Historical [facility] Ear, Nose and Throat 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
--- OUTSIDE RECORDS SUMMARY | 2025-01-29 06:40 | XMS_ITS | Encounter Summary ---
Author Organization [facility] Address [address] [place] [address] Care Team Providers Care Back End Developer Name Role Phone Raulito Nava MD Primary Care Provider [phone] Encounter Details Date Type Department Care Team (Latest Contact Info) Description 01/01/2002 Outpatient Historical [facility] PreAdmission Center [address] [place] [address] Duong Kuhn MD [address] [place] [address] PREOP EXAM OTHER SPECIFIED (Primary Dx) Social History Tobacco Use Types Packs/Day Years Used Date Smoking Tobacco: Never Assessed Comments Unknown Sex and Gender Information Value Date Recorded Sex Assigned at Not on file 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
--- OUTSIDE RECORDS SUMMARY | 2025-01-29 06:40 | XMS_ITS | Encounter Summary ---
Author Organization [facility] Address [address] [place] [address] Care Team Providers Care Shank Breaker Name Role Phone Raulito Nava MD Primary Care Provider [phone] Encounter Details Date Type Department Care Team (Latest Contact Info) Description 01/09/[address] 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
--- OUTSIDE RECORDS SUMMARY | 2025-01-29 06:41 | XMS_ITS | Encounter Summary ---
Author Organization [facility] Address [address] [place] [address] Care Team Providers Care Pouch Making Machine Operator Name Role Phone Raulito Nava MD Primary Care Provider [phone] Encounter Details Date Type Department Care Team (Latest Contact Info) Description 03/03/1999 Outpatient Historical [facility] [address] [phone] Amisha Alfonso MD [address] [place] [phone] Other symptoms referable to back (Primary Dx); Unspecified hypothyroidism Social History Tobacco Use Types Packs/Day Years Used Date Smoking Tobacco: Never Assessed Comments Unknown Sex and Gender Information Value Date Recorded Sex Assigned at Not on file 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
--- OUTSIDE RECORDS SUMMARY | 2025-01-29 06:41 | XMS_ITS | Encounter Summary ---
Author Organization [facility] Address [address] [place] [address] Care Team Providers Care Receiving Manager Name Role Phone Rauilto Nava MD Primary Care Provider [phone] Encounter Details Date Type Department Care Team (Late st Contact Info) Description 03/05/2002 Outpatient Historical [facility] Ear, Nose and Throat 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
--- OUTSIDE RECORDS SUMMARY | 2025-01-29 06:41 | XMS_ITS | Encounter Summary ---
Author Organization [facility] Address [address] [place] [address] Care Team Providers Care Staple Fiber Washer Name Role Phone Raulito Nava MD Primary Care Provider [phone] Encounter Details Date Type Department Care Team (Latest Contact Info) Description 03/11/1999 Outpatient Historical [facility] [address] [place] [phone] Amisha Alfonso MD [address] [place] [phone] Enlargement of lymph nodes (Primary Dx) Social History Tobacco Use Types Packs/Day Years Used Date Smoking Tobacco: Never Assessed Comments Unknown Sex and Gender Information Value Date Recorded Sex Assigned at Not on file 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
--- OUTSIDE RECORDS SUMMARY | 2025-01-29 06:41 | XMS_ITS | Encounter Summary ---
Author Organization [facility] Address [address] [place] [address] Care Team Providers Care Human Resources Assistant Name Role Phone Raulito Nava MD Primary Care Provider [phone] Encounter Details Date Type Department Care Team (Late st Contact Info) Description 01/22/2002 Outpatient Historical [facility] Ear, Nose and Throat 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
--- OUTSIDE RECORDS SUMMARY | 2025-01-29 06:41 | XMS_ITS | Encounter Summary ---
Author Organization [facility] Address [address] [place] [address] Care Team Providers Care Chief Dietitian Name Role Phone Raulito Nava MD Primary Care Provider [phone] Encounter Details Date Type Department Care Team (Latest Contact Info) Description 03/25/1999 Outpatient Historical [facility] [address] [place] [phone] Amisha Alfonso MD [address] [place] [phone] Enlargement of lymph nodes (Primary Dx) Social History Tobacco Use Types Packs/Day Years Used Date Smoking Tobacco: Never Assessed Comments Unknown Sex and Gender Information Value Date Recorded Sex Assigned at Not on file Legal Sex Female 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
--- OUTSIDE RECORDS SUMMARY | 2025-01-29 06:42 | XMS_ITS | Encounter Summary ---
Author Organization [facility] Address [address] [place] [address] Care Team Providers Care Rubber Chemist Name Role Phone Raulito Nava MD Primary Care Provider [phone] Encounter Details Date Type Department Care Team (Latest Contact Info) Description 04/07/2000 Outpatient Historical [facility] [address] [place] [phone] Amisha Alfonso MD [address] [place] [phone] Pneumonia, organism unspecified(486) (Primary Dx) Social History Tobacco Use Types Packs/Day Years Used Date Smoking Tobacco: Never Assessed Comments Unknown Sex and Gender Information Value Date Recorded Sex Assigned at Not on file Legal Sex Female 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
--- OUTSIDE RECORDS SUMMARY | 2025-01-29 06:42 | XMS_ITS | Encounter Summary ---
Author Organization [facility] Address [address] [facility] Attn: [place] [address] Care Team Providers Care Waiter Name Role Phone Raulito Nava MD Primary Care Provider [phone] Encounter Details Date Type Department Care Team (Late st Contact Info) Description 07/01/1999 Outpatient Historical Cheri Alvarez, STRIP MINE SUPERVISOR [address] [place] [phone] Social History Tobacco Use Types Packs/Day Years Used Date Smoking Tobacco: Never Assessed Comments Unknown Sex and Gender Information Value Date Recorded Sex Assigned at Not on file Legal Sex Female 4:15 AM BRANCH ACCOUNT EXECUTIVE Gender Identity Not on file Sexual Orientation Not on file documented as of this encounter Plan of Treatment Not on file documented as of this encounter Visit Diagnoses Not on filedocumented in this encounter Care Teams Waiter Relationship Specialty Start Date End Date Raulito Nava MD [address] [place] [phone] PCP - General 12/04/07 documented as of this encounter
--- OUTSIDE RECORDS SUMMARY | 2025-01-29 06:42 | XMS_ITS | Encounter Summary ---
Author Organization [facility] Address [address] [place] [address] Care Team Providers Care Boilermaker Assembly And Erection Name Role Phone Raulito Nava MD Primary Care Provider [phone] Encounter Details Date Type Department Care Team (Latest Contact Info) Description 07/08/1999 Outpatient Historical [facility] [address] [phone] Amisha Alfonso MD [address] [place] [phone] Esophageal reflux (Primary Dx) Social History Tobacco Use Types Packs/Day Years Used Date Smoking Tobacco: Never Assessed Comments Unknown Sex and Gender Information Value Date Recorded Sex Assigned at Not on file Legal Sex Female 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
--- OUTSIDE RECORDS SUMMARY | 2025-01-29 06:42 | XMS_ITS | Encounter Summary ---
Author Organization [facility] Address [address] [place] [address] Care Team Providers Care Emergency Management Coordinator Name Role Phone Raulito Nava MD Primary Care Provider [phone] Encounter Details Date Type Department Care Team (Latest Contact Info) Description 07/01/1999 Outpatient Historical [facility] [address] [place] [phone] Amisha Alfonso MD [address] [place] [phone] Abdominal pain, right upper quadrant (Primary Dx); Other malaise and fatigue; Unspecified hypothyroidism; Jaundice, unspecified, not of Social History Tobacco Use Types Packs/Day Years Used Date Smoking Tobacco: Never Assessed Comments Unknown Sex and Gender Information Value Date Recorded Sex Assigned at Not on file Legal Sex Female 4:15 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
--- OUTSIDE RECORDS SUMMARY | 2025-01-29 06:42 | XMS_ITS | Encounter Summary ---
Author Organization [facility] Address [address] [place] [address] Care Team Providers Care Relief Manager Name Role Phone Raluito Nava MD Primary Care Provider [phone] Encounter Details Date Type Department Care Team (Latest Contact Info) Description 04/11/2000 Outpatient Historical [facility] [address] [phone] Amisha Alfonso MD [address] [place] [phone] Pneumonia, organism unspecified(486) (Primary Dx) Social History Tobacco Use Types Packs/Day Years Used Date Smoking Tobacco: Never Assessed Comments Unknown Sex and Gender Information Value Date Recorded Sex Assigned at Not on file Legal Sex Female 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
--- OUTSIDE RECORDS SUMMARY | 2025-01-29 06:42 | XMS_ITS | Encounter Summary ---
Author Organization [facility] Address [address] [place] [address] Care Team Providers Care Cyber Systems Operations Specialist Name Role Phone Raulito Nava MD Primary Care Provider [phone] Encounter Details Date Type Department Care Team (Latest Contact Info) Description 11/24/1999 Outpatient Historical [facility] [address] [place] [phone] Hernan Allen MD [address] [place] [address] Spasm of muscle (Primary Dx); Pain in limb Social History Tobacco Use Types Packs/Day Years Used Date Smoking Tobacco: Never Assessed Comments Unknown Sex and Gender Information Value Date Recorded Sex Assigned at Not on file Legal Sex Female 4:15 AM GREENSKEEPER HEAD Gender Identity Not on file Sexual Orientation Not on file documented as of this encounter Plan of Treatment Not on file documented as of this encounter Visit Diagnoses Diagnosis Spasm of muscle- Primary Pain in limb Pain in soft tissues of limb documented in this encounter Care Teams Cyber Systems Operations Specialist Relationship Specialty Start Date End Date Raulito Nava MD [address] [place] [phone] PCP - General 12/04/07 documented as of this encounter
--- OUTSIDE RECORDS SUMMARY | 2025-01-29 06:43 | XMS_ITS | Encounter Summary ---
Author Organization [facility] Address [address] [place] [address] Care Team Providers Care Veterinary Manager Name Role Phone Raulito Nava MD Primary Care Provider [phone] Encounter Details Date Type Department Care Team (Latest Contact Info) Description 11/29/2000 Outpatient Historical [facility] [address] [phone] Amisha Alfonso MD [address] [place] [phone] Sprain of ankle, unspecified site (Primary Dx) Social History Tobacco Use Types Packs/Day Years Used Date Smoking Tobacco: Never Assessed Comments Unknown Sex and Gender Information Value Date Recorded Sex Assigned at Not on file Legal Sex Female 4:15 AM KENNEL HAND Gender Identity Not on file Sexual Orientation Not on file documented as of this encounter Plan of Treatment Not on file documented as of this encounter Visit Diagnoses Diagnosis Sprain of ankle, unspecified site- Primary documented in this encounter Care Teams Veterinary Manager Relationship Specialty Start Date End Date Raulito Nava MD [address] [place] [phone] PCP - General 12/04/07 documented as of this encounter
--- OUTSIDE RECORDS SUMMARY | 2025-01-29 06:43 | XMS_ITS | Encounter Summary ---
Author Organization [facility] Address [address] [place] [address] Care Team Providers Care Stocking And Box Shop Supervisor Name Role Phone Raulito Nava MD Primary Care Provider [phone] Encounter Details Date Type Department Care Team (Late st Contact Info) Description 02/03/1998 [facility]patient [facility] [address] [place] [address] Social History Tobacco Use Types Packs/Day Years Used Date Smoking Tobacco: Never Assessed Comments Unknown Sex and Gender Information Value Date Recorded Sex Assigned at Not on file Legal Sex Female 4:15 AM MOPPER Gender Identity Not on file Sexual Orientation Not on file documented as of this encounter Plan of Treatment Not on file documented as of this encounter Visit Diagnoses Not on filedocumented in this encounter Care Teams Stocking And Box Shop Supervisor Relationship Specialty Start Date End Date Raulito Nava MD [address] [place] [phone] PCP - General 12/04/07 documented as of this encounter
--- OUTSIDE RECORDS SUMMARY | 2025-01-29 06:44 | XMS_ITS | Encounter Summary ---
Author Organization [facility] Address [address] [place] [address] Care Team Providers Care Tax Compliance Officer Name Role Phone Raulito Nava MD Primary Care Provider [phone] Encounter Details Date Type Department Care Team (Latest Contact Info) Description 03/01/1999 Outpatient Historical [facility] [address] [place] [phone] Raulito Nava MD [address] [place] [address] Nonspecific abnormal results of liver function study (Primary Dx) Social History Tobacco Use Types Packs/Day Years Used Date Smoking Tobacco: Never Assessed Comments Unknown Sex and Gender Information Value Date Recorded Sex Assigned at Not on file 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
--- OUTSIDE RECORDS SUMMARY | 2025-01-29 06:44 | XMS_ITS | Encounter Summary ---
Author Organization [facility] Address [address] [place] [address] Care Team Providers Care Surgical Territory Manager Name Role Phone Raulito Nava MD Primary Care Provider [phone] Encounter Details Date Type Department Care Team (Late st Contact Info) Description 03/13/1998 [facility]patient [facility] [address] [place] [address] Social History Tobacco Use Types Packs/Day Years Used Date Smoking Tobacco: Never Assessed Comments Unknown Sex and Gender Information Value Date Recorded Sex Assigned at Not on file Legal Sex Female 4:15 AM INDUSTRIAL SPECIALIST Gender Identity Not on file Sexual Orientation Not on file documented as of this encounter Plan of Treatment Not on file documented as of this encounter Visit Diagnoses Not on filedocumented in this encounter Care Teams Surgical Territory Manager Relationship Specialty Start Date End Date Raulito Nava MD [address] [place] [address] PCP - General 12/04/07 documented as of this encounter
--- OUTSIDE RECORDS SUMMARY | 2025-01-29 06:44 | XMS_ITS | Encounter Summary ---
Author Organization [facility] Address [address] [place] [address] Care Team Providers Care Biazzi Nitrator Operator Name Role Phone Raulito Nava MD Primary Care Provider [phone] Encounter Details Date Type Department Care Team (Latest Contact Info) Description 09/09/1998 Outpatient Historical [facility] [address] [place] [phone] Raulito Nava MD [address] [place] [address] Unspecified hypothyroidism (Primary Dx); Gynecologic examination Social History Tobacco Use Types Packs/Day Years Used Date Smoking Tobacco: Never Assessed Comments Unknown Sex and Gender Information Value Date Recorded Sex Assigned at Not on file Legal Sex Female 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
--- OUTSIDE RECORDS SUMMARY | 2025-01-29 06:44 | XMS_ITS | Encounter Summary ---
Author Organization [employer] Address [address] [facility] Attn: [place] [address] Care Team Providers Care Clother In Name Role Phone Raulito Nava MD Primary Care Provider [phone] Encounter Details Date Type Department Care Team (Late st Contact Info) Description 03/01/1999 Outpatient Historical Raulito Nava MD [address] [place] [phone] Social History Tobacco Use Types Packs/Day Years Used Date Smoking Tobacco: Never Assessed Comments Unknown Sex and Gender Information Value Date Recorded Sex Assigned at Not on file Legal Sex Female 4:15 AM SEASONER HAND Gender Identity Not on file Sexual Orientation Not on file documented as of this encounter Plan of Treatment Not on file documented as of this encounter Visit Diagnoses Not on filedocumented in this encounter Care Teams Clother In Relationship Specialty Start Date End Date Raulito Nava MD [address] [place] [address] PCP - General 12/04/07 documented as of this encounter
--- OUTSIDE RECORDS SUMMARY | 2025-01-29 06:44 | XMS_ITS | Encounter Summary ---
Author Organization [facility] Address [address] [place] [address] Care Team Providers Care Lumber Chain Offbearer Name Role Phone Raulito Nava MD Primary Care Provider [phone] Encounter Details Date Type Department Care Team (Latest Contact Info) Description 07/31/1998 Outpatient Historical [facility] [address] [place] [phone] Raulito Nava MD [address] [place] [address] Unspecified hypothyroidism (Primary Dx); Abnormal weight gain; Orthostatic hypotension; Abdominal pain, right upper quadrant Social History Tobacco Use Types Packs/Day Years Used Date Smoking Tobacco: Never Assessed Comments Unknown Sex and Gender Information Value Date Recorded Sex Assigned at Not on file Legal Sex Female 4:15 AM USED CAR SALES MANAGER Gender Identity Not on file Sexual Orientation Not on file documented as of this encounter Plan of Treatment Not on file documented as of this encounter Visit Diagnoses Diagnosis Unspecified hypothyroidism- Primary Abnormal weight gain Orthostatic hypotension Abdominal pain, right upper quadrant documented in this encounter Care Teams Lumber Chain Offbearer Relationship Specialty Start Date End Date Raulito Nava MD [address] [place] [phone] PCP - General 12/04/07 documented as of this encounter
--- OUTSIDE RECORDS SUMMARY | 2025-01-29 06:44 | XMS_ITS | Encounter Summary ---
Author Organization [facility] Address [address] [place] [address] Care Team Providers Care Plunger Machine Operator Name Role Phone Raulito Nava MD Primary Care Provider [phone] Encounter Details Date Type Department Care Team (Latest Contact Info) Description 12/10/1998 Outpatient Historical [facility] [address] [phone] Amisha Alfonso MD [address] [place] [phone] Mastodynia (Primary Dx); Infective otitis externa, unspecified Social History Tobacco Use Types Packs/Day Years Used Date Smoking Tobacco: Never Assessed Comments Unknown Sex and Gender Information Value Date Recorded Sex Assigned at Not on file Legal Sex Female 4:15 AM MILITARY COMMUNICATIONS SPECIALIST Gender Identity Not on file Sexual Orientation Not on file documented as of this encounter Plan of Treatment Not on file documented as of this encounter Visit Diagnoses Diagnosis Mastodynia- Primary Infective otitis externa, unspecified documented in this encounter Care Teams Plunger Machine Operator Relationship Specialty Start Date End Date Raulito Nava MD [address] [place] [phone] PCP - General 12/04/07 documented as of this encounter
--- OUTSIDE RECORDS SUMMARY | 2025-01-29 06:44 | XMS_ITS | Encounter Summary ---
Author Organization [facility] Address [address] [place] [address] Care Team Providers Care Hand I Thermal Cutter Name Role Phone Raulito Nava MD Primary Care Provider [phone] Encounter Details Date Type Department Care Team (Latest Contact Info) Description 12/28/1998 Outpatient Historical [facility] [address] [place] [address] [phone] Raulito Nava MD [address] [place] [address] Unspecified hypothyroidism (Primary Dx) Social History Tobacco Use Types Packs/Day Years Used Date Smoking Tobacco: Never Assessed Comments Unknown Sex and Gender Information Value Date Recorded Sex Assigned at Not on file Legal Sex Female 4:15 AM CLERICAL CLERK Gender Identity Not on file Sexual Orientation Not on file documented as of this encounter Plan of Treatment Not on file documented as of this encounter Visit Diagnoses Diagnosis Unspecified hypothyroidism- Primary documented in this encounter Care Teams Hand I Thermal Cutter Relationship Specialty Start Date End Date Raulito Nava MD [address] [place] [phone] PCP - General 12/04/07 documented as of this encounter
--- OUTSIDE RECORDS SUMMARY | 2025-01-29 06:44 | XMS_ITS | Encounter Summary ---
Author Organization [facility] Address [address] [place] [address] Care Team Providers Care Lawnmower Mechanic Name Role Phone Raulito Nava MD Primary Care Provider [phone] Encounter Details Date Type Department Care Team (Latest Contact Info) Description 10/09/1998 Outpatient Historical [facility] [address] [place] [phone] Raulito Nava MD [address] [place] [address] Unspecified hypothyroidism (Primary Dx) Social History Tobacco Use Types Packs/Day Years Used Date Smoking Tobacco: Never Assessed Comments Unknown Sex and Gender Information Value Date Recorded Sex Assigned at Not on file Legal Sex Female 4:15 AM ACCOUNTS EXECUTIVE Gender Identity Not on file Sexual Orientation Not on file documented as of this encounter Plan of Treatment Not on file documented as of this encounter Visit Diagnoses Diagnosis Unspecified hypothyroidism- Primary documented in this encounter Care Teams Lawnmower Mechanic Relationship Specialty Start Date End Date Raulito Nava MD [address] [place] [phone] PCP - General 12/04/07 documented as of this encounter
--- OUTSIDE RECORDS SUMMARY | 2025-01-29 06:45 | XMS_ITS | Encounter Summary ---
Author Organization [facility] Address [address] [facility] Attn: [place] [address] Care Team Providers Care Wastewater Treatment Plant Operator Name Role Phone Raulito Nava MD Primary Care Provider [phone] Encounter Details Date Type Department Care Team (Late st Contact Info) Description 03/03/1999 Outpatient Historical Physician, Lab NO ADDRESS ON FILE Social History Tobacco Use Types Packs/Day Years Used Date Smoking Tobacco: Never Assessed Comments Unknown Sex and Gender Information Value Date Recorded Sex Assigned at Not on file Legal Sex Female 4:15 AM MEDICAL TECHNICIAN ASSISTANT Gender Identity Not on file Sexual Orientation Not on file documented as of this encounter Plan of Treatment Not on file documented as of this encounter Visit Diagnoses Not on filedocumented in this encounter Care Teams Wastewater Treatment Plant Operator Relationship Specialty Start Date End Date Raulito Nava MD [address] [place] [address] PCP - General 12/04/07 documented as of this encounter
--- OUTSIDE RECORDS SUMMARY | 2025-01-29 06:45 | XMS_ITS | Encounter Summary ---
Author Organization [facility] Address [address] [place] [address] Care Team Providers Care Welding Machine Operator Submerged Arc Name Role Phone Raulito Nava MD Primary Care Provider [phone] Encounter Details Date Type Department Care Team (Late st Contact Info) Description 11/14/[address] [facility] [address] [phone] Social History Tobacco Use Types Packs/Day Years Used Date Smoking Tobacco: Never Assessed Comments Unknown Sex and Gender Information Value Date Recorded Sex Assigned at Not on file Legal Sex Female 4:15 AM FISHING GEAR MECHANIC Gender Identity Not on file Sexual Orientation Not on file documented as of this encounter Plan of Treatment Not on file documented as of this encounter Visit Diagnoses Not on filedocumented in this encounter Care Teams Welding Machine Operator Submerged Arc Relationship Specialty Start Date End Date Raulito Nava MD [address] [phone] PCP - General 12/04/07 documented as of this encounter
--- OUTSIDE RECORDS SUMMARY | 2025-01-29 06:46 | XMS_ITS | Encounter Summary ---
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
--- OUTSIDE RECORDS SUMMARY | 2025-01-29 06:46 | XMS_ITS | Encounter Summary ---
Author Organization [facility] Address [address] [place] [address] Care Team Providers Care Corporate Analyst Name Role Phone Raulito Nava MD Primary Care Provider [phone] Encounter Details Date Type Department Care Team (Late st Contact Info) Description 12/25/1997 [facility]patient [facility] [address] [place] [address] Social History Tobacco Use Types Packs/Day Years Used Date Smoking Tobacco: Never Assessed Comments Unknown Sex and Gender Information Value Date Recorded Sex Assigned at Not on file Legal Sex Female 4:15 AM INHALATION THERAPY AIDES TEACHER Gender Identity Not on file Sexual Orientation Not on file documented as of this encounter Plan of Treatment Not on file documented as of this encounter Visit Diagnoses Not on filedocumented in this encounter Care Teams Corporate Analyst Relationship Specialty Start Date End Date Raulito Nava MD [address] [place] [phone] PCP - General 12/04/07 documented as of this encounter
--- OUTSIDE RECORDS SUMMARY | 2025-01-29 06:46 | XMS_ITS | Encounter Summary ---
Author Organization [facility] Address [address] [place] [address] Care Team Providers Care Lean Process Deployment Consultant Name Role Phone Raulito Nava MD Primary Care Provider [phone] Encounter Details Date Type Department Care Team (Late st Contact Info) Description 01/22/1998 [facility]patient [facility] [address] [place] [address] Social History Tobacco Use Types Packs/Day Years Used Date Smoking Tobacco: Never Assessed Comments Unknown Sex and Gender Information Value Date Recorded Sex Assigned at Not on file Legal Sex Female 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
--- OUTSIDE RECORDS SUMMARY | 2025-01-29 06:46 | XMS_ITS | Encounter Summary ---
Author Organization [facility] Address [address] [place] [address] Care Team Providers Care Launch Operator Name Role Phone Raulito Nava MD Primary Care Provider Encounter Details Date Type Department Care Team (Late st Contact Info) Description 12/11/1997 Outpatient Historical [facility] [address] [phone] Social History Tobacco Use Types Packs/Day Years Used Date Smoking Tobacco: Never Assessed Comments Unknown Sex and Gender Information Value Date Recorded Sex Assigned at Not on file Legal Sex Female 4:15 AM VOCATIONAL REHAB CONSULTANT Gender Identity Not on file Sexual Orientation Not on file documented as of this encounter Plan of Treatment Not on file documented as of this encounter Visit Diagnoses Not on filedocumented in this encounter Care Teams Launch Operator Relationship Specialty Start Date End Date Raulito Nava MD [address] [phone] PCP - General 12/04/07 documented as of this encounter
--- OUTSIDE RECORDS SUMMARY | 2025-01-29 06:46 | XMS_ITS | Encounter Summary ---
Author Organization [facility] Address [address] [place] [address] Care Team Providers Care Fire Captain Name Role Phone Raulito Nava MD Primary Care Provider [phone] Encounter Details Date Type Department Care Team (Latest Contact Info) Description 04/20/2006 Outpatient Historical [facility] [address] [place] [phone] Cheri Alvarez, [facility] [address] [place] [phone] Routine Gynecological Examination (Primary Dx) Social History Tobacco Use Types Packs/Day Years Used Date Smoking Tobacco: Never Assessed Comments Unknown Sex and Gender Information Value Date Recorded Sex Assigned at Not on file Legal Sex Female 4:15 AM 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
--- OUTSIDE RECORDS SUMMARY | 2025-01-29 06:46 | XMS_ITS | Encounter Summary ---
Author Organization [facility] Address [address] [place] [address] Care Team Providers Care Director Of Mechanical Engineering Name Role Phone Raulito Nava MD Primary Care Provider [phone] Encounter Details Date Type Department Care Team (Late st Contact Info) Description 11/27/1997 Outpatient Historical [facility] [address] [phone] Social History Tobacco Use Types Packs/Day Years Used Date Smoking Tobacco: Never Assessed Comments Unknown Sex and Gender Information Value Date Recorded Sex Assigned at Not on file Legal Sex Female 4:15 AM SEED SPECIALIST Gender Identity Not on file Sexual Orientation Not on file documented as of this encounter Plan of Treatment Not on file documented as of this encounter Visit Diagnoses Not on filedocumented in this encounter Care Teams Director Of Mechanical Engineering Relationship Specialty Start Date End Date Raulito Nava MD [address] [phone] PCP - General 12/04/07 documented as of this encounter
--- OUTSIDE RECORDS SUMMARY | 2025-01-29 06:47 | XMS_ITS | Encounter Summary ---
Author Organization [facility] Address [address] [place] [address] Care Team Providers Care Pulley Mortiser Operator Name Role Phone Raulito Nava MD Primary Care Provider [phone] Encounter Details Date Type Department Care Team (Latest Contact Info) Description 05/09/[address] [facility] [address] [place] [phone] Hernan Allen MD [address] [place] [phone] Nontoxic Multinodular Goiter (Primary Dx) Social History Tobacco Use Types Packs/Day Years Used Date Smoking Tobacco: Never Assessed Comments Unknown Sex and Gender Information Value Date Recorded Sex Assigned at Not on file Legal Sex Female 4:15 AM STAPLE SIDE LASTER Gender Identity Not on file Sexual Orientation Not on file documented as of this encounter Plan of Treatment Not on file documented as of this encounter Visit Diagnoses Diagnosis Nontoxic multinodular goiter- Primary documented in this encounter Care Teams Pulley Mortiser Operator Relationship Specialty Start Date End Date Raulito Nava MD [address] [place] [phone] PCP - General 12/04/07 documented as of this encounter
--- OUTSIDE RECORDS SUMMARY | 2025-01-29 06:47 | XMS_ITS | Encounter Summary ---
Author Organization [facility] Address [address] [place] [address] Care Team Providers Care Jewel Bearing Broacher Name Role Phone Raulito Nava MD Primary Care Provider [phone] Encounter Details Date Type Department Care Team (Latest Contact Info) Description 03/24/2006 Outpatient Historical [facility] [address] [place] [phone] Stanley Sherwood, FOOD SERVICE AIDE [address] [place] [address] Pain in Joint, Shoulder Region (Primary Dx) Social History Tobacco Use Types Packs/Day Years Used Date Smoking Tobacco: Never Assessed Comments Unknown Sex and Gender Information Value Date Recorded Sex Assigned at Not on file Legal Sex Female 4:15 AM CLINICAL BUSINESS ANALYST Gender Identity Not on file Sexual Orientation Not on file documented as of this encounter Plan of Treatment Not on file documented as of this encounter Visit Diagnoses Diagnosis Pain in joint, shoulder region- Primary documented in this encounter Care Teams Jewel Bearing Broacher Relationship Specialty Start Date End Date Raulito Nava MD [address] [place] [phone] PCP - General 12/04/07 documented as of this encounter
--- OUTSIDE RECORDS SUMMARY | 2025-01-29 06:47 | XMS_ITS | Encounter Summary ---
Author Organization [facility] Address [address] [place] [address] Care Team Providers Care Biology Tutor Name Role Phone Raulito Nava MD Primary Care Provider [phone] Encounter Details Date Type Department Care Team (Latest Contact Info) Description 04/20/2006 Outpatient Historical [facility] [address] [place] [phone] Cheri Alavrez, 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
--- OUTSIDE RECORDS SUMMARY | 2025-01-29 06:47 | XMS_ITS | Encounter Summary ---
Author Organization [facility] Address [address] [place] [address] Care Team Providers Care Atomic Process Engineer Name Role Phone Raulito Nava MD Primary Care Provider [phone] Encounter Details Date Type Department Care Team (Latest Contact Info) Description 02/28/2006 Outpatient Historical [facility] [address] [place] [phone] Cheri Alvarez, [facility] [address] [place] [phone] Hemarthrosis, Hand (Primary Dx) Social History Tobacco Use Types Packs/Day Years Used Date Smoking Tobacco: Never Assessed Comments Unknown Sex and Gender Information Value Date Recorded Sex Assigned at Not on file Legal Sex Female 4:15 AM POLICE CAPTAIN SENIOR Gender Identity Not on file Sexual Orientation Not on file documented as of this encounter Plan of Treatment Not on file documented as of this encounter Visit Diagnoses Diagnosis Hemarthrosis, hand- Primary documented in this encounter Care Teams Atomic Process Engineer Relationship Specialty Start Date End Date Raulito Nava MD [address] [place] [phone] PCP - General 12/04/07 documented as of this encounter
--- OUTSIDE RECORDS SUMMARY | 2025-01-29 06:47 | XMS_ITS | Encounter Summary ---
Author Organization [facility] Address [address] [place] [address] Care Team Providers Care Experimental Rocketsled Mechanic Name Role Phone Raulito Nava MD Primary Care Provider [phone] Encounter Details Date Type Department Care Team (Latest Contact Info) Description 05/09/2006 Outpatient Historical [facility] [address] [place] [place] [address] Cheli Olson MD [address] [address] Nontoxic Multinodular Goiter (Primary Dx) Social History Tobacco Use Types Packs/Day Years Used Date Smoking Tobacco: Never Assessed Comments Unknown Sex and Gender Information Value Date Recorded Sex Assigned at Not on file Legal Sex Female 4:15 AM CRM TECHNICAL LEAD Gender Identity Not on file Sexual Orientation Not on file documented as of this encounter Plan of Treatment Not on file documented as of this encounter Procedures Procedure Name Priority Date/Time Associated Diagnosis Comments TSH Routine 05/09/2006 11:10 AM CDT documented in this encounter Results * (ABNORMAL) TSH (05/09/2006 11:10 AM CDT) TSH 69.866(H) 0.350 - 5.500 uIU/ml INTERFACE SYSTEM Comment: As of 04 at 3:00 p.m. [facility] has changed the methodology for TSH, and with this change the reference range has changed from 0.49-4.67 to 0.35-5.5 uIU/ml. 05/09/2006 11:1 0 AM CDT us Cheli Olson MD CHEMISTRY ORDERABLES Edited INTERFACE SYSTEM Refer to clinic/hospital department documented in this encounter Visit Diagnoses Diagnosis Nontoxic multinodular goiter- Primary documented in this encounter Care Teams Experimental Rocketsled Mechanic Relationship Specialty Start Date End Date Raulito Nava MD [address] [place] [address] PCP - General 12/04/07 documented as of this encounter
--- OUTSIDE RECORDS SUMMARY | 2025-01-29 06:47 | XMS_ITS | Encounter Summary ---
Author Organization [facility] Address [address] [place] [address] Care Team Providers Care Hot Dipper Name Role Phone Raulito Nava MD Primary Care Provider [phone] Encounter Details Date Type Department Care Team (Latest Contact Info) Description 2006 Outpatient Historical [facility] Rheumatology- [facility] [address] [place] [address] Hoang Alfonso MD NO ADDRESS ON FILE Rheumatoid Arthritis (CMS/HCC) (Primary Dx) Social History Tobacco Use Types Packs/Day Years Used Date Smoking Tobacco: Never Assessed Comments Unknown Sex and Gender Information Value Date Recorded Sex Assigned at Not on file Legal Sex Female 4:15 AM ENTERPRISE APPLICATION ARCHITECT Gender Identity Not on file Sexual Orientation Not on file documented as of this encounter Plan of Treatment Not on file documented as of this encounter Visit Diagnoses Diagnosis Rheumatoid arthritis(714.0) (CMS/HCC)- Primary Rheumatoid arthritis documented in this encounter Care Teams Hot Dipper Relationship Specialty Start Date End Date Raulito Nava MD [address] [place] [address] PCP - General 12/04/07 documented as of this encounter
--- OUTSIDE RECORDS SUMMARY | 2025-01-29 06:47 | XMS_ITS | Encounter Summary ---
Author Organization [facility] Address [address] [place] [address] Care Team Providers Care Military Technology Specialist Name Role Phone Raulito Nava MD Primary Care Provider [phone] Encounter Details Date Type Department Care Team (Latest Contact Info) Description 03/17/2006 Outpatient Historical [facility] [address] [place] [phone] Cheri Alvarez, [facility] [address] [place] [phone] Acute Bronchitis (Primary Dx); Acute Bronchospasm Social History Tobacco Use Types Packs/Day Years Used Date Smoking Tobacco: Never Assessed Comments Unknown Sex and Gender Information Value Date Recorded Sex Assigned at Not on file Legal Sex Female 4:15 AM CAREGIVER ASSISTED LIVING Gender Identity Not on file Sexual Orientation Not on file documented as of this encounter Plan of Treatment Not on file documented as of this encounter Visit Diagnoses Diagnosis Acute bronchitis- Primary Acute bronchospasm documented in this encounter Care Teams Military Technology Specialist Relationship Specialty Start Date End Date Raulito Nava MD [address] [place] [phone] PCP - General 12/04/07 documented as of this encounter
--- OUTSIDE RECORDS SUMMARY | 2025-01-29 06:47 | XMS_ITS | Encounter Summary ---
Author Organization [facility] Address [address] [place] [address] Care Team Providers Care Mill Helper Name Role Phone Raulito Nava MD Primary Care Provider [phone] Encounter Details Date Type Department Care Team (Latest Contact Info) Description 05/25/2006 Outpatient Historical [facility] [address] [place] [address] Hoang Alfonso MD NO ADDRESS ON FILE Rheumatoid Arthritis ([facility]) (Primary Dx); Encounter for Long-Term (Current) Use of Other Medications Social History Tobacco Use Types Packs/Day Years Used Date Smoking Tobacco: Never Assessed Comments Unknown Sex and Gender Information Value Date Recorded Sex Assigned at Not on file Legal Sex Female 4:15 AM POULTRY HUSBANDMAN Gender Identity Not on file Sexual Orientation Not on file documented as of this encounter Plan of Treatment Not on file documented as of this encounter Visit Diagnoses Diagnosis Rheumatoid arthritis(714.0) ([facility])- Primary Rheumatoid arthritis Encounter for long-term (current) use of other medications documented in this encounter Care Teams Mill Helper Relationship Specialty Start Date End Date Raulito Nava MD [address] [place] [address] PCP - General 12/04/07 documented as of this encounter
--- OUTSIDE RECORDS SUMMARY | 2025-01-29 06:48 | XMS_ITS | Encounter Summary ---
Author Organization [facility] Address [address] [place] [address] Care Team Providers Care Full Time Babysitter Name Role Phone Raulito Nava MD Primary Care Provider [phone] Encounter Details Date Type Department Care Team (Latest Contact Info) Description 02/22/2006 Outpatient Historical [facility] Medicine [place] [address] [place] [phone] Cheri Alvarez, PHILOSOPHY INSTRUCTOR [address] [place] [phone] Pain in Joint, Site Unspecified (Primary Dx); Other Affections of Shoulder Region, not Elsewhere Classified Social History Tobacco Use Types Packs/Day Years Used Date Smoking Tobacco: Never Assessed Comments Unknown Sex and Gender Information Value Date Recorded Sex Assigned at Not on file Legal Sex Female 4:15 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
--- OUTSIDE RECORDS SUMMARY | 2025-01-29 06:48 | XMS_ITS | Encounter Summary ---
Author Organization [facility] Address [address] [place] [address] Care Team Providers Care Relish Blender Name Role Phone Raulito Nava MD Primary Care Provider [phone] Encounter Details Date Type Department Care Team (Latest Contact Info) Description 04/25/2005 Outpatient Historical [facility] [address] [place] [phone] Cheri Alvarez, [facility] [address] [place] [phone] Sebaceous Cyst (Primary Dx) Social History Tobacco Use Types Packs/Day Years Used Date Smoking Tobacco: Never Assessed Comments Unknown Sex and Gender Information Value Date Recorded Sex Assigned at Not on file Legal Sex Female 4:15 AM SCHOOL BASED THERAPIST Gender Identity Not on file Sexual Orientation Not on file documented as of this encounter Plan of Treatment Not on file documented as of this encounter Visit Diagnoses Diagnosis Sebaceous cyst- Primary documented in this encounter Care Teams Relish Blender Relationship Specialty Start Date End Date Raulito Nava MD [address] [place] [phone] PCP - General 12/04/07 documented as of this encounter
--- OUTSIDE RECORDS SUMMARY | 2025-01-29 06:48 | XMS_ITS | Encounter Summary ---
Author Organization [facility] Address [address] [place] [address] Care Team Providers Care Side Seam Tender Name Role Phone Raulito Nava MD Primary Care Provider [phone] Encounter Details Date Type Department Care Team (Latest Contact Info) Description 03/23/2005 Outpatient Historical [facility] [address] [place] [phone] Cheri Alvarez, [facility] [address] [place] [phone] ROUTINE ROOM SERVICE MANAGER EXAMINATION (Primary Dx) Social History Tobacco Use Types Packs/Day Years Used Date Smoking Tobacco: Never Assessed Comments Unknown Sex and Gender Information Value Date Recorded Sex Assigned at Not on file Legal Sex Female 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
--- OUTSIDE RECORDS SUMMARY | 2025-01-29 06:49 | XMS_ITS | Encounter Summary ---
Author Organization [facility] Address [address] [place] [address] Care Team Providers Care Bridge Engineer Name Role Phone Raulito Nava MD Primary Care Provider [phone] Encounter Details Date Type Department Care Team (Latest Contact Info) Description 09/07/2005 Outpatient Historical [facility] [address] [place] [phone] Cheri Alvarez, [facility] [address] [place] [phone] Dermatophytosis of Nail (Primary Dx); Abnormal Weight Gain Social History Tobacco Use Types Packs/Day Years Used Date Smoking Tobacco: Never Assessed Comments Unknown Sex and Gender Information Value Date Recorded Sex Assigned at Not on file Legal Sex Female 4:15 AM SKIDWAY MAN Gender Identity Not on file Sexual Orientation Not on file documented as of this encounter Plan of Treatment Not on file documented as of this encounter Visit Diagnoses Diagnosis Dermatophytosis of nail- Primary Abnormal weight gain documented in this encounter Care Teams Bridge Engineer Relationship Specialty Start Date End Date Raulito Nava MD [address] [place] [phone] PCP - General 12/04/07 documented as of this encounter
--- OUTSIDE RECORDS SUMMARY | 2025-01-29 06:50 | XMS_ITS | Encounter Summary ---
Author Organization [facility] Address [address] [place] [address] Care Team Providers Care Corporate Securities Research Analyst Name Role Phone Raulito Nava MD Primary Care Provider [phone] Encounter Details Date Type Department Care Team (Latest Contact Info) Description 01/27/2006 Outpatient Historical [facility] [address] [place] [phone] Cheri Alvarez, [facility] [address] [place] [address] [phone] Acute Bronchitis (Primary Dx); Cough Social History Tobacco Use Types Packs/Day Years Used Date Smoking Tobacco: Never Assessed Comments Unknown Sex and Gender Information Value Date Recorded Sex Assigned at Not on file Legal Sex Female 4:15 AM FOREST AND CONSERVATION WORKER Gender Identity Not on file Sexual Orientation Not on file documented as of this encounter Plan of Treatment Not on file documented as of this encounter Visit Diagnoses Diagnosis Acute bronchitis- Primary Cough documented in this encounter Care Teams Corporate Securities Research Analyst Relationship Specialty Start Date End Date Raulito Nava MD [address] [place] [phone] PCP - General 12/04/07 documented as of this encounter
--- OUTSIDE RECORDS SUMMARY | 2025-01-29 06:50 | XMS_ITS | Encounter Summary ---
Author Organization [facility] Address [address] [place] [address] Care Team Providers Care Children'S Librarian Name Role Phone Raulito Nava MD Primary Care Provider [phone] Encounter Details Date Type Department Care Team (Latest Contact Info) Description 11/08/2005 Outpatient Historical [facility] [address] [place] [phone] Cheri Alvarez, [facility] [address] [place] [address] [phone] Acute Frontal Sinusitis (Primary Dx); Nausea Alone Social History Tobacco Use Types Packs/Day Years Used Date Smoking Tobacco: Never Assessed Comments Unknown Sex and Gender Information Value Date Recorded Sex Assigned at Not on file Legal Sex Female 4:15 AM HYDRAULIC ELEVATOR CONSTRUCTOR Gender Identity Not on file Sexual Orientation Not on file documented as of this encounter Plan of Treatment Not on file documented as of this encounter Visit Diagnoses Diagnosis Acute frontal sinusitis- Primary Nausea alone documented in this encounter Care Teams Children'S Librarian Relationship Specialty Start Date End Date Raulito Nava MD [address] [place] [phone] PCP - General 12/04/07 documented as of this encounter
--- OUTSIDE RECORDS SUMMARY | 2025-01-29 06:51 | XMS_ITS | Encounter Summary ---
Author Organization [facility] Address [address] [place] [address] Care Team Providers Care Basketball Coach Name Role Phone Raulito Nava MD Primary Care Provider [phone] Encounter Details Date Type Department Care Team (Late st Contact Info) Description 06/18/2004 Outpatient Historical [facility] Imaging Services[place] [address] [place] [address] Amisha Alfonso MD [address] [place] [address] Social History Tobacco Use Types Packs/Day Years Used Date Smoking Tobacco: Never Assessed Comments Unknown Sex and Gender Information Value Date Recorded Sex Assigned at Not on file Legal Sex Female 4:15 AM SENIOR CLERK Gender Identity Not on file Sexual Orientation Not on file documented as of this encounter Plan of Treatment Not on file documented as of this encounter Visit Diagnoses Not on filedocumented in this encounter Care Teams Basketball Coach Relationship Specialty Start Date End Date Raulito Nava MD [address] [place] [address] PCP - General 12/04/07 documented as of this encounter
--- OUTSIDE RECORDS SUMMARY | 2025-01-29 06:51 | XMS_ITS | Encounter Summary ---
Author Organization [facility] Address [address] [place] [address] Care Team Providers Care Housekeeper Caregiver Name Role Phone Raulito Nava MD Primary Care Provider [phone] Encounter Details Date Type Department Care Team (Latest Contact Info) Description 03/14/2005 Outpatient Historical [facility] [address] [place] [phone] Stanley Sherwood, WIRELESS TEAM MEMBER [address] [place] [address] ACUTE FRONTAL SINUSITIS (Primary Dx); ACUTE BRONCHITIS Social History Tobacco Use Types Packs/Day Years Used Date Smoking Tobacco: Never Assessed Comments Unknown Sex and Gender Information Value Date Recorded Sex Assigned at Not on file Legal Sex Female 4:15 AM INTERNET SALES CONSULTANT Gender Identity Not on file Sexual Orientation Not on file documented as of this encounter Plan of Treatment Not on file documented as of this encounter Visit Diagnoses Diagnosis Acute frontal sinusitis- Primary Acute bronchitis documented in this encounter Care Teams Housekeeper Caregiver Relationship Specialty Start Date End Date Raulito Nava MD [address] [place] [address] [phone] PCP - General 12/04/07 documented as of this encounter
--- OUTSIDE RECORDS SUMMARY | 2025-01-29 06:51 | XMS_ITS | Encounter Summary ---
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) Social History Tobacco Use Types Packs/Day Years Used Date Smoking Tobacco: Never Assessed Comments Unknown Sex and Gender Information Value Date Recorded Sex Assigned at Not on file 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
--- OUTSIDE RECORDS SUMMARY | 2025-01-29 06:52 | XMS_ITS | Encounter Summary ---
Author Organization [facility] Address [address] [place] [address] Care Team Providers Care Vac Press Operator Name Role Phone Raulito Nava MD Primary Care Provider [phone] Encounter Details Date Type Department Care Team (Latest Contact Info) Description 11/25/2004 Outpatient Historical [facility] Medicine [place] [address] [place] [phone] Cheri Alvarez, DAIRY EQUIPMENT MECHANIC [address] [place] [phone] Carbuncle of leg (Primary Dx) Social History Tobacco Use Types Packs/Day Years Used Date Smoking Tobacco: Never Assessed Comments Unknown Sex and Gender Information Value Date Recorded Sex Assigned at Not on file 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
--- OUTSIDE RECORDS SUMMARY | 2025-01-29 06:52 | XMS_ITS | Encounter Summary ---
Author Organization [facility] Address [address] [place] [address] Care Team Providers Care Field Trainer Name Role Phone Raulito Nava MD Primary Care Provider [phone] Encounter Details Date Type Department Care Team (Latest Contact Info) Description 06/25/2004 Outpatient Historical [facility] [address] [phone] Amisha Alfonso MD [address] [place] [phone] HYPOTHYROIDISM NOS (Primary Dx) Social History Tobacco Use Types Packs/Day Years Used Date Smoking Tobacco: Never Assessed Comments Unknown Sex and Gender Information Value Date Recorded Sex Assigned at Not on file 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
--- OUTSIDE RECORDS SUMMARY | 2025-01-29 06:52 | XMS_ITS | Encounter Summary ---
Author Organization [facility] Address [address] [place] [address] Care Team Providers Care Heddler Tier Name Role Phone Raulito Nava MD Primary Care Provider [phone] Encounter Details Date Type Department Care Team (Latest Contact Info) Description 06/18/2004 Outpatient Historical [facility] Imaging Services-[facility] [place] [address] [place] [address] Amisha Alfonso MD [address] [place] [phone] ABDOMINAL PAIN RUQ (Primary Dx) Social History Tobacco Use Types Packs/Day Years Used Date Smoking Tobacco: Never Assessed Comments Unknown Sex and Gender Information Value Date Recorded Sex Assigned at Not on file 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
--- OUTSIDE RECORDS SUMMARY | 2025-01-29 06:52 | XMS_ITS | Encounter Summary ---
Author Organization [facility] Address [address] [place] [address] Care Team Providers Care Professor Of Psychology Name Role Phone Raulito Nava MD Primary Care Provider [phone] Encounter Details Date Type Department Care Team (Latest Contact Info) Description 12/05/[address] 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
--- OUTSIDE RECORDS SUMMARY | 2025-01-29 06:53 | XMS_ITS | Encounter Summary ---
Author Organization [facility] Address [address] [place] [address] Care Team Providers Care Batch Roller Operator Name Role Phone Raulito Nava MD Primary Care Provider [phone] Encounter Details Date Type Department Care Team (Latest Contact Info) Description 03/10/[address] 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) Social History Tobacco Use Types Packs/Day Years Used Date Smoking Tobacco: Never Assessed Comments Unknown Sex and Gender Information Value Date Recorded Sex Assigned at Not on file Legal Sex Female 4:15 AM HEAD PUMPER Gender Identity Not on file Sexual Orientation Not on file documented as of this encounter Plan of Treatment Not on file documented as of this encounter Visit Diagnoses Diagnosis Routine gynecological examination- Primary documented in this encounter Care Teams Batch Roller Operator Relationship Specialty Start Date End Date Raulito Nava MD [address] [place] [address] [phone] PCP - General 12/04/07 documented as of this encounter
--- OUTSIDE RECORDS SUMMARY | 2025-01-29 06:53 | XMS_ITS | Encounter Summary ---
Author Organization [facility] Address [address] [place] [address] Care Team Providers Care Dry Janitor Name Role Phone Raulito Nava MD Primary Care Provider [phone] Encounter Details Date Type Department Care Team (Latest Contact Info) Description 01/27/2004 Outpatient Historical [facility] [address] [place] [address] [phone] Hernan Allen MD [address] [place] [phone] ACUTE BRONCHITIS (Primary Dx) Social History Tobacco Use Types Packs/Day Years Used Date Smoking Tobacco: Never Assessed Comments Unknown Sex and Gender Information Value Date Recorded Sex Assigned at Not on file Legal Sex Female 4:15 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
--- OUTSIDE RECORDS SUMMARY | 2025-01-29 06:53 | XMS_ITS | Encounter Summary ---
Author Organization [facility] Address [address] [place] [address] Care Team Providers Care Media Senior Recruiter Name Role Phone Raulito Nava MD Primary Care Provider [phone] Encounter Details Date Type Department Care Team (Latest Contact Info) Description 03/03/2004 Outpatient Historical [facility] [address] [place] [address] [phone] Amisha Alfonso MD [address] [place] [phone] COUGH (Primary Dx); HYPOTHYROIDISM NOS; OTHER MALAISE AND FATIGUE Social History Tobacco Use Types Packs/Day Years Used Date Smoking Tobacco: Never Assessed Comments Unknown Sex and Gender Information Value Date Recorded Sex Assigned at Not on file Legal Sex Female 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
--- OUTSIDE RECORDS SUMMARY | 2025-01-29 06:54 | XMS_ITS | Encounter Summary ---
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 Social History Tobacco Use Types Packs/Day Years Used Date Smoking Tobacco: Never Assessed Comments Unknown Sex and Gender Information Value Date Recorded Sex Assigned at Not on file 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
--- OUTSIDE RECORDS SUMMARY | 2025-01-29 06:54 | XMS_ITS | Encounter Summary ---
Author Organization [facility] Address [address] [place] [address] Care Team Providers Care Certified Vehicle Fire Investigator Name Role Phone Raulito Nava MD Primary Care Provider [phone] Encounter Details Date Type Department Care Team (Latest Contact Info) Description 06/08/2004 Outpatient Historical [facility] [address] [place] [phone] Amisha Alfonso MD [address] [place] [id number] ABDOMINAL PAIN RUQ (Primary Dx); OTHER MALAISE AND FATIGUE Social History Tobacco Use Types Packs/Day Years Used Date Smoking Tobacco: Never Assessed Comments Unknown Sex and Gender Information Value Date Recorded Sex Assigned at Not on file Legal Sex Female 4:15 AM ON SITE NURSE Gender Identity Not on file Sexual Orientation Not on file documented as of this encounter Plan of Treatment Not on file documented as of this encounter Visit Diagnoses Diagnosis Abdominal pain, right upper quadrant- Primary Other malaise and fatigue documented in this encounter Care Teams Certified Vehicle Fire Investigator Relationship Specialty Start Date End Date Raulito Nava MD [address] [place] [phone] PCP - General 12/04/07 documented as of this encounter
== END 2025-01-29 06:07 | disposition home or self-care (01) ==
LOC: ICU 01-29 05:18
PROVIDERS: Admitting Provider Specialist; PCP Nurse Practitioner Family; Visit Provider Specialist
PROC: (CPT 60240; principal; 2025-01-28 07:00)
DX: E06.5 Other chronic thyroiditis (principal); E04.1 Nontoxic single thyroid nodule; K21.9 Gastro-esophageal reflux disease without esophagitis; M06.9 Rheumatoid arthritis, unspecified; Z85.850 Personal history of malignant neoplasm of thyroid
CPT/HCPCS: 60240; 36415; 51702; 82310; 83970; 88307; G0378; J0169; J0690; J1100; J2250; J2405; J3301; J3490; J7030; J7120; J9999